=== PATIENT | female | born 1930 | race Caucasian/White ===

== ENCOUNTER 2018-07-19 13:58 | Inpatient (IN) | payer MEDICARE, BC ==
[2018-07-19] MEDS ORDERED: Sodium Chloride 0.9% 2.5 ML Syringe FLUSH PRN (14:01)
[2018-07-19] MEDS ORDERED: Sodium Chloride 0.9% 10 ML Syringe FLUSH PRN (14:01)
[2018-07-19] MEDS ORDERED: Diltiazem 25 MG/5 ML SDV IVPUSH ONE ×2 (14:14→15:25)
--- NOTE | 2018-07-19 14:16 | EDM.PDOC ---
ED HPI GENERAL MEDICAL PROBLEM - General Chief Complaint: Cardiovascular Problem Stated Complaint: SENT FROM THE CLINIC Time Seen by Provider: 07/19/18 14:00 Source of Information: Reports: Patient History Limitations: Reports: No Limitations - History of Present Illness INITIAL COMMENTS - FREE TEXT/NARRATIVE: HISTORY AND PHYSICAL: History of present illness: Patient is an 88-year-old female who [facility] with complaints of shortness of breath and dry cough since . She states she has notices lower extremity swelling to bilateral ankles; with a 10 lb weight gain in the past week. She went to the clinic for evaluation. The clinic noted that she was in atrial fibrillation and encouraged her to come to the emergency room. Patient has no previous history of atrial fibrillation. Patient denies any fever, chills, headache, change in vision, syncope or near syncope. Denies any chest pain or back pain. Denies any abdominal pain, nausea, vomiting, diarrhea, constipation or dysuria. Has not noted any blood in urine or stool. Patient has been eating and drinking appropriately. Review of systems: As per history of present illness and below otherwise all systems reviewed and negative. Past medical history: As per history of present illness and as reviewed below otherwise noncontributory. Surgical history: As per history of present illness and as reviewed below otherwise noncontributory. Social history: See social history for further information Family history: As per history of present illness and as reviewed below otherwise noncontributory. Physical exam: General: Well developed and well nourished 88-year-old female. Alert and oriented. Nontoxic appearing and in no acute distress. HEENT: Atraumatic, normocephalic, pupils equal and reactive bilaterally, negative for conjunctival pallor or scleral icterus, mucous membranes moist, TMs normal bilaterally, throat clear, neck supple, nontender, trachea midline. No drooling or trismus noted. No meningeal signs. No hot potato voice noted. Lungs: Clear to auscultation, breath sounds equal bilaterally, chest nontender. Heart: Irregular rate and rhythm, HR 140-160's. Abdomen: Soft, nondistended, nontender. Negative for masses or hepatosplenomegaly. Negative for costovertebral tenderness. Pelvis: Stable nontender. Genitourinary: Deferred. Rectal: Deferred. Skin: Intact, warm, dry. No lesions or rashes noted. Extremities: Atraumatic, moves all extremities per self without difficulty or deficits, +2 pitting edema bilaterally. She is negative for cords or calf pain. Neurovascular unremarkable. Neuro: Awake, alert, oriented. Cranial nerves II through XII unremarkable. Cerebellum unremarkable. Motor and sensory unremarkable throughout. Exam nonfocal. Notes: CHADS2-VASC Score: 4 (Female, age greater than 75, hx of HTN). Dr Gerard has been involved in this case. After the initial dose of the Cardizem, patient's rate went down to 90s to low 100s. Approximately 45 minutes to one hour after the initial dose her rate is now 1 teens. Second dose of Cardizem given. Dr Do was consulted on this patient; he is agreeable to keeping this patient for observation. Patient will be admitted for observation with telemetry. Patient is aware and agreeable. Diagnostics: CBC, CMP, UA, Troponin, EKG, BNP, CXR Therapeutics: Cardizem, IV fluids Impression: New-onset atrial fibrillation with RVR Plan: Observation admission with Telemetry Definitive disposition and diagnosis as appropriate pending reevaluation and review of above. - Related Data Allergies Allergy/AdvReac Type Severity Reaction Status Date / Time shellfish derived Allergy Intermediate Airway Verified 06/08/14 21:24 Tightness aspirin Allergy Cannot Verified 07/08/13 13:37 Remember diphenhydramine HCl Allergy Difficulty Verified 06/08/14 21:23 [From Benadryl] Breathing prednisone Allergy Cannot Verified 07/08/13 13:37 Remember Home Meds: Home Meds hydroCHLOROthiazide [Hydrochlorothiazide] 25 mg PO DAILY 06/08/14 [History] ED ROS GENERAL - Review of Systems Review Of Systems: ROS reveals no pertinent complaints other than HPI. ED EXAM, GENERAL - Physical Exam Exam: See Below (See dictation) Course - Vital Signs Last Recorded V/S: Last Vital Signs Temp 98.2 F 07/19/18 14:13 Pulse 121 H 07/19/18 15:35 Resp 18 07/19/18 15:35 BP 121/73 07/19/18 15:35 Pulse Ox 95 07/19/18 15:35 - Orders/Labs/Meds Orders: Active Orders 24 hr Category Date Time Status Admission Status [Patient Status] [ADT] Stat ADT 07/19/18 15:29 Active EKG Documentation Completion [RC] STAT Care 07/19/18 14:01 Active UA RFX MAYDA AND CULT IF INDIC [URIN] Stat Lab 07/19/18 14:01 Ordered Sodium Chloride 0.9% [Normal Saline] 1,000 ml Med 07/19/18 14:19 Active IV STAT Sodium Chloride 0.9% [Saline Flush] Med 07/19/18 14:01 Active 10 ml FLUSH ASDIRECTED PRN Sodium Chloride 0.9% [Saline Flush] Med 07/19/18 14:01 Active 2.5 ml FLUSH ASDIRECTED PRN Saline Lock Insert [OM.PC] Stat Oth 07/19/18 14:01 Ordered Medication Orders Sodium Chloride (Normal Saline) 1,000 mls @ 125 mls/hr IV STAT ONE Stop: 07/19/18 22:18 Last Admin: 07/19/18 14:31 Dose: 125 mls/hr Sodium Chloride (Saline Flush) 10 ml FLUSH ASDIRECTED PRN PRN Reason: Keep Vein Open Last Admin: 07/19/18 14:32 Dose: 10 ml Sodium Chloride (Saline Flush) 2.5 ml FLUSH ASDIRECTED PRN PRN Reason: Keep Vein Open Last Admin: 07/19/18 14:32 Dose: 2.5 ml Labs: Laboratory Tests 07/19/18 07/19/18 07/19/18 Range/Units 14:10 14:10 14:10 WBC 8.95 (4.0-11.0) K/uL RBC 3.96 L (4.30-5.90) M/uL Hgb 12.1 (12.0-16.0) g/dL Hct 37.9 (36.0-46.0) % MCV 95.7 (80.0-98.0) fL MCH 30.6 (27.0-32.0) pg MCHC 31.9 (31.0-37.0) g/dL RDW Std Deviation 48.0 (28.0-62.0) fl RDW Coeff of Jameson 14 (11.0-15.0) % Plt Count 214 (150-400) K/uL MPV 9.90 (7.40-12.00) fL Neut % (Auto) 70.1 (48.0-80.0) % Lymph % (Auto) 21.7 (16.0-40.0) % Cloud % (Auto) 7.4 (0.0-15.0) % Eos % (Auto) 0.6 (0.0-7.0) % Baso % (Auto) 0.2 (0.0-1.5) % Neut # (Auto) 6.3 H (1.4-5.7) K/uL Lymph # (Auto) 1.9 (0.6-2.4) K/uL Cloud # (Auto) 0.7 (0.0-0.8) K/uL Eos # (Auto) 0.1 (0.0-0.7) K/uL Baso # (Auto) 0.0 (0.0-0.1) K/uL Nucleated RBC % 0.0 /100WBC Nucleated RBCs # 0 K/uL INR Sodium 139 (136-145) mmol/L Potassium 5.1 (3.5-5.1) mmol/L Chloride 105 (98-107) mmol/L Carbon Dioxide 24.7 (21.0-32.0) mmol/L BUN 35 H (7.0-18.0) mg/dL Creatinine 1.4 H (0.6-1.0) mg/dL Est Cr Clr Drug Dosing TNP Estimated GFR (MDRD) 35.4 ml/min Glucose 153 H (74-106) mg/dL Calcium 9.2 (8.5-10.1) mg/dL Total Bilirubin 0.5 (0.2-1.0) mg/dL AST 49 H (15-37) IU/L ALT 129 H (14-63) IU/L Alkaline Phosphatase 87 (46-116) U/L Troponin I < 0.050 (0.000-0.056) ng/mL B-Natriuretic Peptide 463 H (<100) PG/ML Total Protein 7.5 (6.4-8.2) g/dL Albumin 3.8 (3.4-5.0) g/dL Globulin 3.7 (2.6-4.0) g/dL Albumin/Globulin Ratio 1.0 (0.9-1.6) // Range/Units 14:10 WBC (4.0-11.0) K/uL RBC (4.30-5.90) M/uL Hgb (12.0-16.0) g/dL Hct (36.0-46.0) % MCV (80.0-98.0) fL MCH (27.0-32.0) pg MCHC (31.0-37.0) g/dL RDW Std Deviation (28.0-62.0) fl RDW Coeff of Jameson (11.0-15.0) % Plt Count (150-400) K/uL MPV (7.40-12.00) fL Neut % (Auto) (48.0-80.0) % Lymph % (Auto) (16.0-40.0) % Cloud % (Auto) (0.0-15.0) % Eos % (Auto) (0.0-7.0) % Baso % (Auto) (0.0-1.5) % Neut # (Auto) (1.4-5.7) K/uL Lymph # (Auto) (0.6-2.4) K/uL Cloud # (Auto) (0.0-0.8) K/uL Eos # (Auto) (0.0-0.7) K/uL Baso # (Auto) (0.0-0.1) K/uL Nucleated RBC % /100WBC Nucleated RBCs # K/uL INR 1.04 Sodium (136-145) mmol/L Potassium (3.5-5.1) mmol/L Chloride (98-107) mmol/L Carbon Dioxide (21.0-32.0) mmol/L BUN (7.0-18.0) mg/dL Creatinine (0.6-1.0) mg/dL Est Cr Clr Drug Dosing Estimated GFR (MDRD) ml/min Glucose (74-106) mg/dL Calcium (8.5-10.1) mg/dL Total Bilirubin (0.2-1.0) mg/dL AST (15-37) IU/L ALT (14-63) IU/L Alkaline Phosphatase (46-116) U/L Troponin I (0.000-0.056) ng/mL B-Natriuretic Peptide (<100) PG/ML Total Protein (6.4-8.2) g/dL Albumin (3.4-5.0) g/dL Globulin (2.6-4.0) g/dL Albumin/Globulin Ratio (0.9-1.6) Meds: Medications Generic Name Dose Route Start Last Admin Trade Name Freq PRN Reason Stop Dose Admin Sodium Chloride 1,000 mls @ 125 mls/hr 07/19/18 14:19 07/19/18 14:31 Normal Saline IV 07/19/18 22:18 125 mls/hr STAT ONE Administration Sodium Chloride 10 ml 07/19/18 14:01 07/19/18 14:32 Saline Flush FLUSH 10 ml ASDIRECTED PRN Administration Keep Vein Open Sodium Chloride 2.5 ml 07/19/18 14:01 07/19/18 14:32 Saline Flush FLUSH 2.5 ml ASDIRECTED PRN Administration Keep Vein Open Discontinued Medications Generic Name Dose Route Start Last Admin Trade Name Freq PRN Reason Stop Dose Admin Diltiazem HCl 20 mg 07/19/18 14:14 07/19/18 14:21 Diltiazem IVPUSH 07/19/18 14:15 20 mg ONETIME ONE Administration Diltiazem HCl 20 mg 07/19/18 15:25 Diltiazem IVPUSH 07/19/18 15:26 ONETIME ONE Departure - Departure Time of Disposition: 15:34 Disposition: Refer to Observation Clinical Impression: Atrial fibrillation with RVR Referrals: PCP,Unknown [Primary Care Provider] - Forms: ED Department Discharge - My Orders Last 24 Hours: My Active Orders 07/19/18 14:01 EKG Documentation Completion [RC] STAT UA RFX MAYDA AND CULT IF INDIC [URIN] Stat Sodium Chloride 0.9% [Saline Flush] 10 ml FLUSH ASDIRECTED PRN Sodium Chloride 0.9% [Saline Flush] 2.5 ml FLUSH ASDIRECTED PRN Saline Lock Insert [OM.PC] Stat 07/19/18 14:19 Sodium Chloride 0.9% [Normal Saline] 1,000 ml IV STAT 07/19/18 15:29 Admission Status [Patient Status] [ADT] Stat - Assessment/Plan Last 24 Hours: My Active Orders 07/19/18 14:01 EKG Documentation Completion [RC] STAT UA RFX MAYDA AND CULT IF INDIC [URIN] Stat Sodium Chloride 0.9% [Saline Flush] 10 ml FLUSH ASDIRECTED PRN Sodium Chloride 0.9% [Saline Flush] 2.5 ml FLUSH ASDIRECTED PRN Saline Lock Insert [OM.PC] Stat 07/19/18 14:19 Sodium Chloride 0.9% [Normal Saline] 1,000 ml IV STAT 07/19/18 15:29 Admission Status [Patient Status] [ADT] Stat
[2018-07-19] MEDS ORDERED: Sodium Chloride 0.9% 1,000 ML IV ONE (14:19)
[2018-07-19 14:52] LABS: CHLORIDE,CL 105 mmol/L (98-107); SODIUM,NA 139 mmol/L (136-145)
--- NOTE | 2018-07-19 15:13 | CR ---
EXAMINATION: Two-view chest (PA and Lateral views). HISTORY: Shortness of breath. FINDINGS: The trachea is midline. The heart is borderline in size for technique. The cardiomediastinal silhouette is within normal limits. No pulmonary infiltrates, effusions or pneumothorax. Mild vascular calcifications. Mild hyperinflation and chronic interstitial prominence. Osseous structures appear osteopenic. IMPRESSION: Mild cardiomegaly and hyperinflation.
[2018-07-19] MEDS ORDERED: Furosemide 40 MG/4 ML VIAL IVPUSH ONE (18:24)
[2018-07-19] MEDS: Metoprolol Tartrate 25 MG Tab PO SCH (18:36)
--- NOTE | 2018-07-19 19:00 | PCM.HP ---
H&P History of Present Illness - General Date of Service: 07/19/18 Admit Problem/Dx: Admission Diagnosis/Problem Admission Diagnosis/Problem Atrial fibrillation with rapid ventricular response - History of Present Illness Initial Comments - Free Text/Narative: 88 yo female who presented with one day history of shortness of breath. Patient reports and increase in 10 lbs in past week. She also noticed increase swelling of her legs. She does not sleep on her back due to shortness of breath. In the ED she was noted to have atrial fibrillation with rate of 160. She was given diltiazem which has slowed down her rate. - Related Data Allergies/Adverse Reactions: Allergies Allergy/AdvReac Type Severity Reaction Status Date / Time shellfish derived Allergy Intermediate Airway Verified 06/08/14 21:24 Tightness aspirin Allergy Cannot Verified 07/08/13 13:37 Remember diphenhydramine HCl Allergy Difficulty Verified 06/08/14 21:23 [From Benadryl] Breathing prednisone Allergy Cannot Verified 07/08/13 13:37 Remember Home Medications: Home Meds hydroCHLOROthiazide [Hydrochlorothiazide] 25 mg PO DAILY 06/08/14 [History] Past Medical History HEENT History: Reports: Hard of Hearing Other HEENT History: Cochlear implant Right Cardiovascular History: Reports: Hypertension Respiratory History: Reports: None Gastrointestinal History: Reports: None TOOL MAKER History: Reports: None Neurological History: Reports: None Psychiatric History: Reports: None Endocrine/Metabolic History: Reports: None Hematologic History: Reports: None Immunologic History: Reports: None Oncologic (Cancer) History: Reports: None Dermatologic History: Reports: None - Infectious Disease History Infectious Disease History: Reports: Measles, Mumps - Past Surgical History Head Surgeries/Procedures: Reports: None HEENT Surgical History: Reports: Adenoidectomy Musculoskeletal Surgical History: Reports: Shoulder Surgery Social & Family History - Family History Family Medical History: Noncontributory - Tobacco Use Smoking Status *Q: Never Smoker Second Hand Smoke Exposure: No - Caffeine Use Caffeine Use: Reports: Coffee, Soda Caffeine Use Comment: drinks 3-4 cups of coffee per day as stated and drinks soda occassionally - Alcohol Use Days Per Week of Alcohol Use: 2 Number of Drinks Per Day: 1 Total Drinks Per Week: 2 Date of Last Drink: 07/14/18 Time of Last Drink: 08:00 - Recreational Drug Use Recreational Drug Use: No H&P Review of Systems - Review of Systems: Review Of Systems: ROS reveals no pertinent complaints other than HPI. Exam - Exam Exam: See Below - Vital Signs Vital Signs: Last Vital Signs Temp 36.2 C 07/19/18 17:30 Pulse 130 H 07/19/18 18:36 Resp 19 07/19/18 17:30 BP 166/103 H 07/19/18 18:36 Pulse Ox 97 07/19/18 17:30 Weight: 95.753 kg - Exam General: Alert, Oriented HEENT: Conjunctiva Clear Neck: Supple, Trachea Midline Lungs: Clear to Auscultation, Normal Respiratory Effort Cardiovascular: Irregular Rhythm, Tachycardia GI/Abdominal Exam: Normal Bowel Sounds, Soft, Non-Tender Extremities: Normal Range of Motion, Non-Tender, Pedal Edema Skin: Warm, Dry, Intact - Patient Data Lab Results Last 24 hrs: Laboratory Results - last 24 hr 07/19/18 07/19/18 07/19/18 Range/Units 14:10 14:10 14:10 WBC 8.95 (4.0-11.0) K/uL RBC 3.96 L (4.30-5.90) M/uL Hgb 12.1 (12.0-16.0) g/dL Hct 37.9 (36.0-46.0) % MCV 95.7 (80.0-98.0) fL MCH 30.6 (27.0-32.0) pg MCHC 31.9 (31.0-37.0) g/dL RDW Std Deviation 48.0 (28.0-62.0) fl RDW Coeff of Jameson 14 (11.0-15.0) % Plt Count 214 (150-400) K/uL MPV 9.90 (7.40-12.00) fL Neut % (Auto) 70.1 (48.0-80.0) % Lymph % (Auto) 21.7 (16.0-40.0) % [place] % (Auto) 7.4 (0.0-15.0) % Eos % (Auto) 0.6 (0.0-7.0) % Baso % (Auto) 0.2 (0.0-1.5) % Neut # (Auto) 6.3 H (1.4-5.7) K/uL Lymph # (Auto) 1.9 (0.6-2.4) K/uL [place] # (Auto) 0.7 (0.0-0.8) K/uL Eos # (Auto) 0.1 (0.0-0.7) K/uL Baso # (Auto) 0.0 (0.0-0.1) K/uL Nucleated RBC % 0.0 /100WBC Nucleated RBCs # 0 K/uL INR Sodium 139 (136-145) mmol/L Potassium 5.1 (3.5-5.1) mmol/L Chloride 105 (98-107) mmol/L Carbon Dioxide 24.7 (21.0-32.0) mmol/L BUN 35 H (7.0-18.0) mg/dL Creatinine 1.4 H (0.6-1.0) mg/dL Est Cr Clr Drug Dosing TNP Estimated GFR (MDRD) 35.4 ml/min Glucose 153 H (74-106) mg/dL Calcium 9.2 (8.5-10.1) mg/dL Magnesium (1.8-2.4) mg/dL Total Bilirubin 0.5 (0.2-1.0) mg/dL AST 49 H (15-37) IU/L ALT 129 H (14-63) IU/L Alkaline Phosphatase 87 (46-116) U/L Troponin I < 0.050 (0.000-0.056) ng/mL B-Natriuretic Peptide 463 H (<100) PG/ML Total Protein 7.5 (6.4-8.2) g/dL Albumin 3.8 (3.4-5.0) g/dL Globulin 3.7 (2.6-4.0) g/dL Albumin/Globulin Ratio 1.0 (0.9-1.6) 07/19/18 07/19/18 Range/Units 14:10 14:10 WBC (4.0-11.0) K/uL RBC (4.30-5.90) M/uL Hgb (12.0-16.0) g/dL Hct (36.0-46.0) % MCV (80.0-98.0) fL MCH (27.0-32.0) pg MCHC (31.0-37.0) g/dL RDW Std Deviation (28.0-62.0) fl RDW Coeff of Jameson (11.0-15.0) % Plt Count (150-400) K/uL MPV (7.40-12.00) fL Neut % (Auto) (48.0-80.0) % Lymph % (Auto) (16.0-40.0) % [place] % (Auto) (0.0-15.0) % Eos % (Auto) (0.0-7.0) % Baso % (Auto) (0.0-1.5) % Neut # (Auto) (1.4-5.7) K/uL Lymph # (Auto) (0.6-2.4) K/uL [place] # (Auto) (0.0-0.8) K/uL Eos # (Auto) (0.0-0.7) K/uL Baso # (Auto) (0.0-0.1) K/uL Nucleated RBC % /100WBC Nucleated RBCs # K/uL INR 1.04 Sodium (136-145) mmol/L Potassium (3.5-5.1) mmol/L Chloride (98-107) mmol/L Carbon Dioxide (21.0-32.0) mmol/L BUN (7.0-18.0) mg/dL Creatinine (0.6-1.0) mg/dL Est Cr Clr Drug Dosing Estimated GFR (MDRD) ml/min Glucose (74-106) mg/dL Calcium (8.5-10.1) mg/dL Magnesium 2.2 (1.8-2.4) mg/dL Total Bilirubin (0.2-1.0) mg/dL AST (15-37) IU/L ALT (14-63) IU/L Alkaline Phosphatase (46-116) U/L Troponin I (0.000-0.056) ng/mL B-Natriuretic Peptide (<100) PG/ML Total Protein (6.4-8.2) g/dL Albumin (3.4-5.0) g/dL Globulin (2.6-4.0) g/dL Albumin/Globulin Ratio (0.9-1.6) Result Diagrams: 07/19/18 14:10 07/19/18 14:10 Problem List Initiated/Reviewed/Updated: Yes Orders Last 24hrs: Active Orders 24 hr Category Date Time Status Patient Status [ADT] Routine ADT 07/19/18 18:54 Ordered Antiembolic Devices [RC] PER UNIT ROUTINE Care 07/19/18 18:56 Ordered Oxygen Therapy [RC] PRN Care 07/19/18 18:54 Ordered Up ad Maryuri [RC] ASDIRECTED Care 07/19/18 18:54 Ordered VTE/DVT Education [RC] PER UNIT ROUTINE Care 07/19/18 18:54 Ordered Vital Signs [RC] Q4H Care 07/19/18 18:54 Ordered Regular Diet [DIET] Diet 07/19/18 Dinner Active BASIC METABOLIC PANEL,BMP [CHEM] Timed Lab 07/19/18 18:54 Ordered CBC WITH AUTO DIFF [HEME] AM Lab 07/20/18 05:11 Ordered UA RFX MAYDA AND CULT IF INDIC [URIN] Stat Lab 07/19/18 14:01 Ordered Apixaban [Eliquis] Med 07/19/18 21:00 Active 2.5 mg PO BID Diltiazem Med 07/19/18 18:24 Active 20 mg IVPUSH Q3H PRN Metoprolol Tartrate [Lopressor] Med 07/19/18 18:30 Active 25 mg PO Q12H Sodium Chloride 0.9% [Saline Flush] Med 07/19/18 14:01 Active 10 ml FLUSH ASDIRECTED PRN Sodium Chloride 0.9% [Saline Flush] Med 07/19/18 14:01 Active 2.5 ml FLUSH ASDIRECTED PRN Saline Lock Insert [OM.PC] Stat Oth 07/19/18 14:01 Ordered Sequential Compression Device [OM.PC] Per Unit Routine Oth 07/19/18 18:55 Ordered Resuscitation Status Routine Resus Stat 07/19/18 18:54 Ordered Medication Orders Apixaban (Eliquis) 2.5 mg PO BID DIEGO Diltiazem HCl (Diltiazem) 20 mg IVPUSH Q3H PRN PRN Reason: HR over 100 Metoprolol Tartrate (Lopressor) 25 mg PO Q12H DIEGO Last Admin: 07/19/18 18:36 Dose: 25 mg Sodium Chloride (Saline Flush) 10 ml FLUSH ASDIRECTED PRN PRN Reason: Keep Vein Open Last Admin: 07/19/18 14:32 Dose: 10 ml Sodium Chloride (Saline Flush) 2.5 ml FLUSH ASDIRECTED PRN PRN Reason: Keep Vein Open Last Admin: 07/19/18 14:32 Dose: 2.5 ml Assessment/Plan Comment:: 88 yo female admitted with atrial fibrillation with RVR and suspect new onset CHF exacerbation. We will treat with IV lasix, metoprolol for rate control. Patient wants to start Eliquis for stroke prevention. Echocardiogram has been ordered.
[2018-07-19] MEDS: Apixaban 2.5 MG Tab PO SCH (21:10)
[2018-07-19] MEDS: Diltiazem 25 MG/5 ML SDV IVPUSH PRN (23:06)
[2018-07-20] MEDS: Albuterol 8 GM Inhaler INH PRN (02:54)
[2018-07-20] MEDS: Diltiazem 25 MG/5 ML SDV IVPUSH PRN ×3 (02:55→15:55)
[2018-07-20] MEDS: Acetaminophen 325 MG Tab PO PRN ×2 (03:53→21:42)
[2018-07-20] MEDS: Metoprolol Tartrate 25 MG Tab PO SCH ×2 (06:57→17:49)
[2018-07-20] MEDS: Apixaban 2.5 MG Tab PO SCH ×2 (09:09→20:06)
--- NOTE | 2018-07-20 13:40 | PCM.PN ---
- General Info Date of Service: 07/20/18 - Review of Systems Systems Review Comment:: still reports shortness of breath - Patient Data Vitals - Most Recent: Last Vital Signs Temp 36.0 C 07/20/18 12:00 Pulse 109 H 07/20/18 12:00 Resp 20 07/20/18 12:00 BP 107/60 07/20/18 12:00 Pulse Ox 98 07/20/18 12:00 Weight - Most Recent: 95.481 kg I&O - Last 24 Hours: Intake & Output 07/19/18 07/20/18 07/20/18 22:59 06:59 14:59 Intake Total 550 Output Total 1100 Balance -550 Lab Results Last 24 Hours: Laboratory Results - last 24 hr 07/19/18 07/19/18 07/19/18 Range/Units 14:10 14:10 14:10 WBC 8.95 (4.0-11.0) K/uL RBC 3.96 L (4.30-5.90) M/uL Hgb 12.1 (12.0-16.0) g/dL Hct 37.9 (36.0-46.0) % MCV 95.7 (80.0-98.0) fL MCH 30.6 (27.0-32.0) pg MCHC 31.9 (31.0-37.0) g/dL RDW Std Deviation 48.0 (28.0-62.0) fl RDW Coeff of [place] 14 (11.0-15.0) % Plt Count 214 (150-400) K/uL MPV 9.90 (7.40-12.00) fL Neut % (Auto) 70.1 (48.0-80.0) % Lymph % (Auto) 21.7 (16.0-40.0) % [place] % (Auto) 7.4 (0.0-15.0) % Eos % (Auto) 0.6 (0.0-7.0) % Baso % (Auto) 0.2 (0.0-1.5) % Neut # (Auto) 6.3 H (1.4-5.7) K/uL Lymph # (Auto) 1.9 (0.6-2.4) K/uL [place] # (Auto) 0.7 (0.0-0.8) K/uL Eos # (Auto) 0.1 (0.0-0.7) K/uL Baso # (Auto) 0.0 (0.0-0.1) K/uL Nucleated RBC % 0.0 /100WBC Nucleated RBCs # 0 K/uL INR Sodium 139 (136-145) mmol/L Potassium 5.1 (3.5-5.1) mmol/L Chloride 105 (98-107) mmol/L Carbon Dioxide 24.7 (21.0-32.0) mmol/L BUN 35 H (7.0-18.0) mg/dL Creatinine 1.4 H (0.6-1.0) mg/dL Est Cr Clr Drug Dosing TNP Estimated GFR (MDRD) 35.4 ml/min Glucose 153 H (74-106) mg/dL Calcium 9.2 (8.5-10.1) mg/dL Magnesium (1.8-2.4) mg/dL Total Bilirubin 0.5 (0.2-1.0) mg/dL AST 49 H (15-37) IU/L ALT 129 H (14-63) IU/L Alkaline Phosphatase 87 (46-116) U/L Troponin I < 0.050 (0.000-0.056) ng/mL B-Natriuretic Peptide 463 H (<100) PG/ML Total Protein 7.5 (6.4-8.2) g/dL Albumin 3.8 (3.4-5.0) g/dL Globulin 3.7 (2.6-4.0) g/dL Albumin/Globulin Ratio 1.0 (0.9-1.6) Urine Color Urine Appearance Urine pH (5.0-8.0) Ur Specific [place] (1.001-1.035) Urine Protein (NEGATIVE) mg/dL Urine Glucose (UA) (NEGATIVE) mg/dL Urine Ketones (NEGATIVE) mg/dL Urine Occult Blood (NEGATIVE) Urine Nitrite (NEGATIVE) Urine Bilirubin (NEGATIVE) Urine Urobilinogen (<2.0) EU/dL Ur Leukocyte Esterase (NEGATIVE) Urine RBC (0-2/HPF) Urine WBC (0-5/HPF) Ur Epithelial Cells (NONE-FEW) Urine Bacteria (NEGATIVE) 07/19/18 07/19/18 07/19/18 Range/Units 14:10 14:10 19:08 WBC (4.0-11.0) K/uL RBC (4.30-5.90) M/uL Hgb (12.0-16.0) g/dL Hct (36.0-46.0) % MCV (80.0-98.0) fL MCH (27.0-32.0) pg MCHC (31.0-37.0) g/dL RDW Std Deviation (28.0-62.0) fl RDW Coeff of Jameson (11.0-15.0) % Plt Count (150-400) K/uL MPV (7.40-12.00) fL Neut % (Auto) (48.0-80.0) % Lymph % (Auto) (16.0-40.0) % [place] % (Auto) (0.0-15.0) % Eos % (Auto) (0.0-7.0) % Baso % (Auto) (0.0-1.5) % Neut # (Auto) (1.4-5.7) K/uL Lymph # (Auto) (0.6-2.4) K/uL [place] # (Auto) (0.0-0.8) K/uL Eos # (Auto) (0.0-0.7) K/uL Baso # (Auto) (0.0-0.1) K/uL Nucleated RBC % /100WBC Nucleated RBCs # K/uL INR 1.04 Sodium 140 (136-145) mmol/L Potassium 5.3 H (3.5-5.1) mmol/L Chloride 105 (98-107) mmol/L Carbon Dioxide 25.3 (21.0-32.0) mmol/L BUN 36 H (7.0-18.0) mg/dL Creatinine 1.3 H (0.6-1.0) mg/dL Est Cr Clr Drug Dosing 25.33 Estimated GFR (MDRD) 38.6 ml/min Glucose 134 H (74-106) mg/dL Calcium 9.1 (8.5-10.1) mg/dL Magnesium 2.2 (1.8-2.4) mg/dL Total Bilirubin (0.2-1.0) mg/dL AST (15-37) IU/L ALT (14-63) IU/L Alkaline Phosphatase (46-116) U/L Troponin I (0.000-0.056) ng/mL B-Natriuretic Peptide (<100) PG/ML Total Protein (6.4-8.2) g/dL Albumin (3.4-5.0) g/dL Globulin (2.6-4.0) g/dL Albumin/Globulin Ratio (0.9-1.6) Urine Color Urine Appearance Urine pH (5.0-8.0) Ur Specific [place] (1.001-1.035) Urine Protein (NEGATIVE) mg/dL Urine Glucose (UA) (NEGATIVE) mg/dL Urine Ketones (NEGATIVE) mg/dL Urine Occult Blood (NEGATIVE) Urine Nitrite (NEGATIVE) Urine Bilirubin (NEGATIVE) Urine Urobilinogen (<2.0) EU/dL Ur Leukocyte Esterase (NEGATIVE) Urine RBC (0-2/HPF) Urine WBC (0-5/HPF) Ur Epithelial Cells (NONE-FEW) Urine Bacteria (NEGATIVE) 07/19/18 07/20/18 07/20/18 Range/Units 19:35 07:01 11:32 WBC 8.96 (4.0-11.0) K/uL RBC 3.63 L (4.30-5.90) M/uL Hgb 11.0 L (12.0-16.0) g/dL Hct 34.3 L (36.0-46.0) % MCV 94.5 (80.0-98.0) fL MCH 30.3 (27.0-32.0) pg MCHC 32.1 (31.0-37.0) g/dL RDW Std Deviation 47.0 (28.0-62.0) fl RDW Coeff of [place] 14 (11.0-15.0) % Plt Count 150 (150-400) K/uL MPV 10.00 (7.40-12.00) fL Neut % (Auto) 55.0 (48.0-80.0) % Lymph % (Auto) 34.5 (16.0-40.0) % [place] % (Auto) 8.4 (0.0-15.0) % Eos % (Auto) 1.9 (0.0-7.0) % Baso % (Auto) 0.2 (0.0-1.5) % Neut # (Auto) 4.9 (1.4-5.7) K/uL Lymph # (Auto) 3.1 H (0.6-2.4) K/uL [place] # (Auto) 0.8 (0.0-0.8) K/uL Eos # (Auto) 0.2 (0.0-0.7) K/uL Baso # (Auto) 0.0 (0.0-0.1) K/uL Nucleated RBC % 0.0 /100WBC Nucleated RBCs # 0 K/uL INR Sodium 139 (136-145) mmol/L Potassium 4.7 (3.5-5.1) mmol/L Chloride 104 (98-107) mmol/L Carbon Dioxide 27.2 (21.0-32.0) mmol/L BUN 40 H (7.0-18.0) mg/dL Creatinine 1.4 H (0.6-1.0) mg/dL Est Cr Clr Drug Dosing 23.69 Estimated GFR (MDRD) 35.4 ml/min Glucose 135 H (74-106) mg/dL Calcium 9.2 (8.5-10.1) mg/dL Magnesium (1.8-2.4) mg/dL Total Bilirubin (0.2-1.0) mg/dL AST (15-37) IU/L ALT (14-63) IU/L Alkaline Phosphatase (46-116) U/L Troponin I (0.000-0.056) ng/mL B-Natriuretic Peptide (<100) PG/ML Total Protein (6.4-8.2) g/dL Albumin (3.4-5.0) g/dL Globulin (2.6-4.0) g/dL Albumin/Globulin Ratio (0.9-1.6) Urine Color DARK YELLOW Urine Appearance SLT CLOUDY Urine pH 5.0 (5.0-8.0) Ur Specific [place] 1.020 (1.001-1.035) Urine Protein NEGATIVE (NEGATIVE) mg/dL Urine Glucose (UA) NEGATIVE (NEGATIVE) mg/dL Urine Ketones NEGATIVE (NEGATIVE) mg/dL Urine Occult Blood NEGATIVE (NEGATIVE) Urine Nitrite POSITIVE H (NEGATIVE) Urine Bilirubin NEGATIVE (NEGATIVE) Urine Urobilinogen 0.2 (<2.0) EU/dL Ur Leukocyte Esterase SMALL H (NEGATIVE) Urine RBC 0-3 (0-2/HPF) Urine WBC 10-15 (0-5/HPF) Ur Epithelial Cells FEW (NONE-FEW) Urine Bacteria 3+ H (NEGATIVE) Med Orders - Current: Current Medications Acetaminophen (Tylenol) 650 mg PO Q6H PRN PRN Reason: Pain Last Admin: 07/20/18 03:53 Dose: 650 mg Albuterol (Ventolin Hfa) 0 gm INH Q4H PRN PRN Reason: Shortness of Breath Last Admin: 07/20/18 02:54 Dose: 2 inhalation Apixaban (Eliquis) 2.5 mg PO BID [place] Last Admin: 07/20/18 09:09 Dose: 2.5 mg Diltiazem HCl (Diltiazem) 20 mg IVPUSH Q3H PRN PRN Reason: HR over 100 Last Admin: 07/20/18 12:30 Dose: 20 mg Furosemide (Lasix) 40 mg IVPUSH NOW ONE Stop: 07/20/18 13:39 Metoprolol Tartrate (Lopressor) 25 mg PO Q12H [place] Last Admin: 07/20/18 06:57 Dose: 25 mg Sodium Chloride (Saline Flush) 10 ml FLUSH ASDIRECTED PRN PRN Reason: Keep Vein Open Last Admin: 07/19/18 14:32 Dose: 10 ml Sodium Chloride (Saline Flush) 2.5 ml FLUSH ASDIRECTED PRN PRN Reason: Keep Vein Open Last Admin: 07/19/18 14:32 Dose: 2.5 ml Discontinued Medications Diltiazem HCl (Diltiazem) 20 mg IVPUSH ONETIME ONE Stop: 07/19/18 14:15 Last Admin: 07/19/18 14:21 Dose: 20 mg Diltiazem HCl (Diltiazem) 20 mg IVPUSH ONETIME ONE Stop: 07/19/18 15:26 Last Admin: 07/19/18 15:40 Dose: 20 mg Furosemide (Lasix) 40 mg IVPUSH NOW ONE Stop: 07/19/18 18:25 Last Admin: 07/19/18 18:36 Dose: 40 mg Sodium Chloride (Normal Saline) 1,000 mls @ 125 mls/hr IV STAT ONE Stop: 07/19/18 22:18 Last Admin: 07/19/18 14:31 Dose: 125 mls/hr - Exam General: Alert, Oriented Neck: Supple Lungs: Clear to Auscultation, Normal Respiratory Effort Cardiovascular: Irregular Rhythm Extremities: Pedal Edema Skin: Warm, Dry, Intact - Problem List Review Problem List Initiated/Reviewed/Updated: Yes - My Orders Last 24 Hours: My Active Orders 07/19/18 18:24 Diltiazem 20 mg IVPUSH Q3H PRN 07/19/18 18:30 Metoprolol Tartrate [Lopressor] 25 mg PO Q12H 07/19/18 18:54 Patient Status [ADT] Routine Oxygen Therapy [RC] PRN Up ad Maryuri [RC] ASDIRECTED VTE/DVT Education [RC] PER UNIT ROUTINE Vital Signs [RC] Q4H Resuscitation Status Routine 07/19/18 18:55 Sequential Compression Device [OM.PC] Per Unit Routine 07/19/18 18:56 Antiembolic Devices [RC] PER UNIT ROUTINE Echo Comp wo Cont [US] Routine 07/19/18 21:00 Apixaban [Eliquis] 2.5 mg PO BID 07/19/18 23:50 Telemetry Monitoring [Cardiac Monitoring] [RC] Q8H 07/19/18 23:51 Albuterol [Ventolin HFA] 0 gm INH Q4H PRN 07/19/18 23:53 RT Post Treatment Assessment [RC] Click to Edit RT Pre-Treatment Assessment [RC] Click to Edit 07/19/18 Dinner Regular Diet [DIET] 07/20/18 03:34 Acetaminophen [Tylenol] 650 mg PO Q6H PRN 07/20/18 13:38 Furosemide [Lasix] 40 mg IVPUSH NOW ONE 07/21/18 05:11 BASIC METABOLIC PANEL,BMP [CHEM] AM 07/22/18 05:11 BASIC METABOLIC PANEL,BMP [CHEM] AM - Plan Plan:: 88 yo female admitted with atrial fibrillation with RVR and suspect new onset CHF exacerbation. We will continue IV lasix, metoprolol 25 BID for rate control. Started Eliquis for stroke prevention. Echocardiogram has been ordered.
[2018-07-20] MEDS ORDERED: Furosemide 40 MG/4 ML VIAL IVPUSH ONE (13:43)
[2018-07-21] MEDS: Metoprolol Tartrate 25 MG Tab PO SCH ×3 (06:19→23:20)
[2018-07-21] MEDS: Apixaban 2.5 MG Tab PO SCH ×2 (08:29→20:38)
[2018-07-21] MEDS ORDERED: Furosemide 40 MG/4 ML VIAL IVPUSH ONE (11:00)
--- NOTE | 2018-07-21 11:10 | PCM.PN ---
- General Info Date of Service: 07/21/18 - Review of Systems Systems Review Comment:: shortness of breath improving - Patient Data Vitals - Most Recent: Last Vital Signs Temp 37.3 C 07/21/18 08:00 Pulse 82 07/21/18 08:00 Resp 17 07/21/18 08:00 BP 111/78 07/21/18 08:00 Pulse Ox 96 07/21/18 08:00 Weight - Most Recent: 92.788 kg I&O - Last 24 Hours: Intake & Output 07/20/18 07/21/18 07/21/18 22:59 06:59 14:59 Intake Total 1000 800 Output Total 1450 1400 Balance -450 -600 Lab Results Last 24 Hours: Laboratory Results - last 24 hr 07/20/18 07/21/18 Range/Units 11:32 05:58 Sodium 139 141 (136-145) mmol/L Potassium 4.7 3.9 (3.5-5.1) mmol/L Chloride 104 105 (98-107) mmol/L Carbon Dioxide 27.2 27.5 (21.0-32.0) mmol/L BUN 40 H 41 H (7.0-18.0) mg/dL Creatinine 1.4 H 1.6 H (0.6-1.0) mg/dL Est Cr Clr Drug Dosing 23.69 20.73 mL/min Estimated GFR (MDRD) 35.4 30.3 ml/min Glucose 135 H 115 H (74-106) mg/dL Calcium 9.2 8.8 (8.5-10.1) mg/dL Kyle Results Last 24 Hours: Microbiology 07/19/18 19:35 Urine Culture - Final Urine, Clean Catch Escherichia Coli Positive For Group B Strep Normal Urogenital Harper Med Orders - Current: Current Medications Acetaminophen (Tylenol) 650 mg PO Q6H PRN PRN Reason: Pain Last Admin: 07/20/18 21:42 Dose: 650 mg Albuterol (Ventolin Hfa) 0 gm INH Q4H PRN PRN Reason: Shortness of Breath Last Admin: 07/20/18 02:54 Dose: 2 inhalation Apixaban (Eliquis) 2.5 mg PO BID [place] Last Admin: 07/21/18 08:29 Dose: 2.5 mg Cephalexin (Keflex) 250 mg PO Q12H [facility] Diltiazem HCl (Diltiazem) 20 mg IVPUSH Q3H PRN PRN Reason: HR over 100 Last Admin: 07/20/18 15:55 Dose: 20 mg Metoprolol Tartrate (Lopressor) 25 mg PO Q12H [facility] Last Admin: 07/21/18 06:19 Dose: Not Given Sodium Chloride (Saline Flush) 10 ml FLUSH ASDIRECTED PRN PRN Reason: Keep Vein Open Last Admin: 07/19/18 14:32 Dose: 10 ml Sodium Chloride (Saline Flush) 2.5 ml FLUSH ASDIRECTED PRN PRN Reason: Keep Vein Open Last Admin: 07/19/18 14:32 Dose: 2.5 ml Discontinued Medications Diltiazem HCl (Diltiazem) 20 mg IVPUSH ONETIME ONE Stop: 07/19/18 14:15 Last Admin: 07/19/18 14:21 Dose: 20 mg Diltiazem HCl (Diltiazem) 20 mg IVPUSH ONETIME ONE Stop: 07/19/18 15:26 Last Admin: 07/19/18 15:40 Dose: 20 mg Furosemide (Lasix) 40 mg IVPUSH NOW ONE Stop: 07/19/18 18:25 Last Admin: 07/19/18 18:36 Dose: 40 mg Furosemide (Lasix) 40 mg IVPUSH NOW ONE Stop: 07/20/18 13:44 Last Admin: 07/20/18 14:03 Dose: 40 mg Furosemide (Lasix) 40 mg IVPUSH NOW ONE Stop: 07/21/18 11:01 Sodium Chloride (Normal Saline) 1,000 mls @ 125 mls/hr IV STAT ONE Stop: 07/19/18 22:18 Last Admin: 07/19/18 14:31 Dose: 125 mls/hr - Exam General: Alert, Oriented HEENT: Mucous Membr. Moist/[place] Neck: Supple Lungs: Clear to Auscultation, Normal Respiratory Effort Cardiovascular: Regular Rate, Regular Rhythm GI/Abdominal Exam: Soft, Non-Tender Extremities: Pedal Edema Skin: Warm, Dry, Intact - Problem List Review Problem List Initiated/Reviewed/Updated: Yes - My Orders Last 24 Hours: My Active Orders 07/21/18 11:00 cephALEXin [Keflex] 250 mg PO Q12H 07/21/18 11:08 Metoprolol Tartrate [Lopressor] 50 mg PO Q12H 07/21/18 Lunch Fluid Restriction [DIET] 07/22/18 05:11 BASIC METABOLIC PANEL,BMP [CHEM] AM CBC WITH AUTO DIFF [HEME] AM - Plan Plan:: 88 yo female admitted with atrial fibrillation with RVR and suspect new onset CHF exacerbation. CHF: continue lasix 40mg IV daily, echocardiogram ordered A.fib: increase metoprolol o 50mg BID, continue eliquisWe will continue IV lasix , metoprolol 25 BID for rate control. Ecoli UTI: treating with Keflex
[2018-07-21] MEDS: Cephalexin 250 MG Cap PO SCH ×2 (11:35→23:21)
[2018-07-21] MEDS: Diltiazem 25 MG/5 ML SDV IVPUSH PRN ×2 (14:55→23:21)
[2018-07-21] MEDS: Acetaminophen 325 MG Tab PO PRN (20:38)
[2018-07-22] MEDS: Acetaminophen 325 MG Tab PO PRN ×3 (04:17→22:03)
[2018-07-22] MEDS: Apixaban 2.5 MG Tab PO SCH ×2 (09:25→21:06)
[2018-07-22] MEDS: Diltiazem 25 MG/5 ML SDV IVPUSH PRN (09:25)
--- NOTE | 2018-07-22 10:33 | PCM.PN ---
- General Info Date of Service: 07/22/18 - Review of Systems Systems Review Comment:: shortness of breath resolved - Patient Data Vitals - Most Recent: Last Vital Signs Temp 35.9 C 07/22/18 08:00 Pulse 144 H 07/22/18 08:00 Resp 20 07/22/18 08:00 BP 89/72 L 07/22/18 08:00 Pulse Ox 92 L 07/22/18 08:00 Weight - Most Recent: 93.5 kg I&O - Last 24 Hours: Intake & Output 07/21/18 07/22/18 07/22/18 22:59 06:59 14:59 Intake Total 550 750 Output Total 850 1000 Balance -300 -250 Lab Results Last 24 Hours: Laboratory Results - last 24 hr 07/22/18 07/22/18 Range/Units 05:50 05:50 WBC 7.22 (4.0-11.0) K/uL RBC 3.70 L (4.30-5.90) M/uL Hgb 11.3 L (12.0-16.0) g/dL Hct 35.2 L (36.0-46.0) % MCV 95.1 (80.0-98.0) fL MCH 30.5 (27.0-32.0) pg MCHC 32.1 (31.0-37.0) g/dL RDW Std Deviation 46.8 (28.0-62.0) fl RDW Coeff of [place]on 14 (11.0-15.0) % Plt Count 214 (150-400) K/uL MPV 9.70 (7.40-12.00) fL Neut % (Auto) 51.2 (48.0-80.0) % Lymph % (Auto) 36.4 (16.0-40.0) % [place] % (Auto) 10.4 (0.0-15.0) % Eos % (Auto) 1.9 (0.0-7.0) % Baso % (Auto) 0.1 (0.0-1.5) % Neut # (Auto) 3.7 (1.4-5.7) K/uL Lymph # (Auto) 2.6 H (0.6-2.4) K/uL [place] # (Auto) 0.8 (0.0-0.8) K/uL Eos # (Auto) 0.1 (0.0-0.7) K/uL Baso # (Auto) 0.0 (0.0-0.1) K/uL Nucleated RBC % 0.0 /100WBC Nucleated RBCs # 0 K/uL Sodium 140 (136-145) mmol/L Potassium 4.1 (3.5-5.1) mmol/L Chloride 104 (98-107) mmol/L Carbon Dioxide 27.7 (21.0-32.0) mmol/L BUN 39 H (7.0-18.0) mg/dL Creatinine 1.5 H (0.6-1.0) mg/dL Est Cr Clr Drug Dosing 22.12 mL/min Estimated GFR (MDRD) 32.7 ml/min Glucose 128 H (74-106) mg/dL Calcium 8.8 (8.5-10.1) mg/dL Kyle Results Last 24 Hours: Microbiology 07/19/18 19:35 Urine Culture - Final Urine, Clean Catch Escherichia Coli Positive For Group B Strep Normal Urogenital Harper Med Orders - Current: Current Medications Acetaminophen (Tylenol) 650 mg PO Q6H PRN PRN Reason: Pain Last Admin: 07/22/18 04:17 Dose: 650 mg Albuterol (Ventolin Hfa) 0 gm INH Q4H PRN PRN Reason: Shortness of Breath Last Admin: 07/20/18 02:54 Dose: 2 inhalation Apixaban (Eliquis) 2.5 mg PO BID [facility] Last Admin: 07/22/18 09:25 Dose: 2.5 mg Cephalexin (Keflex) 250 mg PO Q12H [facility] Last Admin: 07/21/18 23:21 Dose: 250 mg Diltiazem HCl (Diltiazem) 20 mg IVPUSH Q3H PRN PRN Reason: HR over 100 Last Admin: 07/22/18 09:25 Dose: 20 mg Metoprolol Tartrate (Lopressor) 50 mg PO Q12H [facility] Last Admin: 07/21/18 23:20 Dose: 50 mg Sodium Chloride (Saline Flush) 10 ml FLUSH ASDIRECTED PRN PRN Reason: Keep Vein Open Last Admin: 07/19/18 14:32 Dose: 10 ml Sodium Chloride (Saline Flush) 2.5 ml FLUSH ASDIRECTED PRN PRN Reason: Keep Vein Open Last Admin: 07/19/18 14:32 Dose: 2.5 ml Discontinued Medications Diltiazem HCl (Diltiazem) 20 mg IVPUSH ONETIME ONE Stop: 07/19/18 14:15 Last Admin: 07/19/18 14:21 Dose: 20 mg Diltiazem HCl (Diltiazem) 20 mg IVPUSH ONETIME ONE Stop: 07/19/18 15:26 Last Admin: 07/19/18 15:40 Dose: 20 mg Furosemide (Lasix) 40 mg IVPUSH NOW ONE Stop: 07/19/18 18:25 Last Admin: 07/19/18 18:36 Dose: 40 mg Furosemide (Lasix) 40 mg IVPUSH NOW ONE Stop: 07/20/18 13:44 Last Admin: 07/20/18 14:03 Dose: 40 mg Furosemide (Lasix) 40 mg IVPUSH NOW ONE Stop: 07/21/18 11:01 Last Admin: 07/21/18 11:36 Dose: 40 mg Sodium Chloride (Normal Saline) 1,000 mls @ 125 mls/hr IV STAT ONE Stop: 07/19/18 22:18 Last Admin: 07/19/18 14:31 Dose: 125 mls/hr Metoprolol Tartrate (Lopressor) 25 mg PO Q12H [facility] Last Admin: 07/21/18 06:19 Dose: Not Given - Exam General: Alert, Oriented Neck: Supple Lungs: Clear to Auscultation, Normal Respiratory Effort Cardiovascular: Irregular Rhythm, Tachycardia GI/Abdominal Exam: Normal Bowel Sounds, Soft, Non-Tender Extremities: Normal Inspection, Non-Tender Skin: Warm, Dry, Intact - Problem List Review Problem List Initiated/Reviewed/Updated: Yes - My Orders Last 24 Hours: My Active Orders 07/21/18 11:00 cephALEXin [Keflex] 250 mg PO Q12H 07/21/18 11:08 Metoprolol Tartrate [Lopressor] 50 mg PO Q12H 07/22/18 Echo Comp wo Cont [US] Routine - Plan Plan:: 88 yo female admitted with atrial fibrillation with RVR and suspect new onset CHF exacerbation. CHF: BP low will hold lasix today, echocardiogram ordered A.fib: Metoprolol 50mg BID, continue eliquis. was given IV diltiazem this morning for HR in 140s. Ecoli UTI: treating with Keflex
[2018-07-22] MEDS: Metoprolol Tartrate 25 MG Tab PO SCH ×2 (12:24→23:40)
[2018-07-22] MEDS: Cephalexin 250 MG Cap PO SCH ×2 (12:24→23:40)
[2018-07-23] MEDS: Albuterol 8 GM Inhaler INH PRN (05:20)
[2018-07-23] MEDS: Apixaban 2.5 MG Tab PO SCH ×2 (08:01→20:14)
[2018-07-23] MEDS ORDERED: Furosemide 40 MG/4 ML VIAL IVPUSH ONE (11:00)
[2018-07-23] MEDS: Metoprolol Tartrate 25 MG Tab PO SCH ×2 (12:26→22:23)
[2018-07-23] MEDS: Cephalexin 250 MG Cap PO SCH ×2 (12:27→22:30)
--- NOTE | 2018-07-23 12:29 | PCM.PN ---
- General Info Date of Service: 07/23/18 - Review of Systems Systems Review Comment:: no shortness of breath, no palpitations - Patient Data Vitals - Most Recent: Last Vital Signs Temp 36.3 C 07/23/18 07:38 Pulse 109 H 07/23/18 07:38 Resp 17 07/23/18 07:38 BP 148/65 H 07/23/18 07:38 Pulse Ox 93 L 07/23/18 07:38 Weight - Most Recent: 93.2 kg I&O - Last 24 Hours: Intake & Output 07/22/18 07/23/18 07/23/18 22:59 06:59 14:59 Intake Total 620 650 Output Total 600 750 Balance 20 -100 Lab Results Last 24 Hours: Laboratory Results - last 24 hr 07/23/18 07/23/18 Range/Units 05:19 05:19 WBC 8.27 (4.0-11.0) K/uL RBC 3.93 L (4.30-5.90) M/uL Hgb 11.9 L (12.0-16.0) g/dL Hct 38.0 (36.0-46.0) % MCV 96.7 (80.0-98.0) fL MCH 30.3 (27.0-32.0) pg MCHC 31.3 (31.0-37.0) g/dL RDW Std Deviation 48.8 (28.0-62.0) fl RDW Coeff of [place] 14 (11.0-15.0) % Plt Count 228 (150-400) K/uL MPV 10.30 (7.40-12.00) fL Neut % (Auto) 58.3 (48.0-80.0) % Lymph % (Auto) 31.9 (16.0-40.0) % [place] % (Auto) 7.5 (0.0-15.0) % Eos % (Auto) 2.1 (0.0-7.0) % Baso % (Auto) 0.2 (0.0-1.5) % Neut # (Auto) 4.8 (1.4-5.7) K/uL Lymph # (Auto) 2.6 H (0.6-2.4) K/uL [place] # (Auto) 0.6 (0.0-0.8) K/uL Eos # (Auto) 0.2 (0.0-0.7) K/uL Baso # (Auto) 0.0 (0.0-0.1) K/uL Nucleated RBC % 0.0 /100WBC Nucleated RBCs # 0 K/uL Sodium 142 (136-145) mmol/L Potassium 4.5 (3.5-5.1) mmol/L Chloride 105 (98-107) mmol/L Carbon Dioxide 29.0 (21.0-32.0) mmol/L BUN 36 H (7.0-18.0) mg/dL Creatinine 1.3 H (0.6-1.0) mg/dL Est Cr Clr Drug Dosing 25.52 mL/min Estimated GFR (MDRD) 38.6 ml/min Glucose 125 H (74-106) mg/dL Calcium 9.2 (8.5-10.1) mg/dL Med Orders - Current: Current Medications Acetaminophen (Tylenol) 650 mg PO Q6H PRN PRN Reason: Pain Last Admin: 07/22/18 22:03 Dose: 650 mg Albuterol (Ventolin Hfa) 0 gm INH Q4H PRN PRN Reason: Shortness of Breath Last Admin: 07/23/18 05:20 Dose: 2 inhalation Apixaban (Eliquis) 2.5 mg PO BID [facility] Last Admin: 07/23/18 08:01 Dose: 2.5 mg Cephalexin (Keflex) 250 mg PO Q12H [facility] Last Admin: 07/22/18 23:40 Dose: 250 mg Diltiazem HCl (Diltiazem) 20 mg IVPUSH Q3H PRN PRN Reason: HR over 100 Last Admin: 07/22/18 09:25 Dose: 20 mg Metoprolol Tartrate (Lopressor) 75 mg PO Q12H [facility] Sodium Chloride (Saline Flush) 10 ml FLUSH ASDIRECTED PRN PRN Reason: Keep Vein Open Last Admin: 07/19/18 14:32 Dose: 10 ml Sodium Chloride (Saline Flush) 2.5 ml FLUSH ASDIRECTED PRN PRN Reason: Keep Vein Open Last Admin: 07/19/18 14:32 Dose: 2.5 ml Discontinued Medications Diltiazem HCl (Diltiazem) 20 mg IVPUSH ONETIME ONE Stop: 07/19/18 14:15 Last Admin: 07/19/18 14:21 Dose: 20 mg Diltiazem HCl (Diltiazem) 20 mg IVPUSH ONETIME ONE Stop: 07/19/18 15:26 Last Admin: 07/19/18 15:40 Dose: 20 mg Furosemide (Lasix) 40 mg IVPUSH NOW ONE Stop: 07/19/18 18:25 Last Admin: 07/19/18 18:36 Dose: 40 mg Furosemide (Lasix) 40 mg IVPUSH NOW ONE Stop: 07/20/18 13:44 Last Admin: 07/20/18 14:03 Dose: 40 mg Furosemide (Lasix) 40 mg IVPUSH NOW ONE Stop: 07/21/18 11:01 Last Admin: 07/21/18 11:36 Dose: 40 mg Furosemide (Lasix) 40 mg IVPUSH NOW ONE Stop: 07/23/18 11:01 Sodium Chloride (Normal Saline) 1,000 mls @ 125 mls/hr IV STAT ONE Stop: 07/19/18 22:18 Last Admin: 07/19/18 14:31 Dose: 125 mls/hr Metoprolol Tartrate (Lopressor) 25 mg PO Q12H [facility] Last Admin: 07/21/18 06:19 Dose: Not Given Metoprolol Tartrate (Lopressor) 50 mg PO Q12H [facility] Last Admin: 07/22/18 23:40 Dose: 50 mg - Exam General: Alert, Oriented Neck: Supple Lungs: Clear to Auscultation, Normal Respiratory Effort Cardiovascular: Regular Rate, Regular Rhythm Extremities: Non-Tender, No Pedal Edema Skin: Warm, Dry, Intact Neurological: No New Focal Deficit - Problem List Review Problem List Initiated/Reviewed/Updated: Yes - My Orders Last 24 Hours: My Active Orders 07/23/18 10:41 Metoprolol Tartrate [Lopressor] 75 mg PO Q12H 07/24/18 05:11 BASIC METABOLIC PANEL,BMP [CHEM] AM CBC WITH AUTO DIFF [HEME] AM - Plan Plan:: 88 yo female admitted with atrial fibrillation with RVR and suspect new onset CHF exacerbation. CHF:lasix 40mg daily, echocardiogram report pending A.fib: will increase Metoprolol to 75 mg BID, continue eliquis. IV diltiazem prn Ecoli UTI: treating with Keflex
[2018-07-23] MEDS: Diltiazem 25 MG/5 ML SDV IVPUSH PRN ×2 (13:15→20:13)
[2018-07-23] MEDS: Acetaminophen 325 MG Tab PO PRN (13:15)
[2018-07-23] MEDS ORDERED: traMADol 50 MG Tab PO ONE (17:10)
[2018-07-24] MEDS: Apixaban 2.5 MG Tab PO SCH ×2 (09:12→21:38)
[2018-07-24] MEDS ORDERED: Furosemide 40 MG/4 ML VIAL IVPUSH ONE (09:46)
--- NOTE | 2018-07-24 09:47 | PCM.PN ---
<Deepika Eden M - Last Filed: 07/24/18 11:01> - General Info Date of Service: 07/24/18 Admission Dx/Problem (Free Text): Admission Diagnosis/Problem Admission Diagnosis/Problem Atrial fibrillation with rapid ventricular response Subjective Update: Elisa vargas in the chair visiting with her daughter. No chest pain, sob improved. Reports weight gain overnight. No other complaints. Eager to get ECHO reports. Functional Status: Reports: Pain Controlled, Tolerating Diet, Ambulating, Urinating - Review of Systems General: Reports: No Symptoms. Denies: Fever, Weakness, Fatigue HEENT: Reports: No Symptoms. Denies: Headaches, Sore Throat Pulmonary: Reports: No Symptoms. Denies: Shortness of Breath, Cough, Sputum Cardiovascular: Reports: No Symptoms. Denies: Chest Pain Gastrointestinal: Reports: No Symptoms. Denies: Abdominal Pain, Nausea, Vomiting Genitourinary: Reports: No Symptoms. Denies: Dysuria, Frequency, Burning Musculoskeletal: Reports: Shoulder Pain (R, chronic pain) Skin: Reports: No Symptoms Neurological: Reports: No Symptoms Psychiatric: Reports: No Symptoms - Patient Data Vitals - Most Recent: Last Vital Signs Temp 96.6 F 07/24/18 07:45 Pulse 112 H 07/24/18 07:45 Resp 16 07/24/18 07:45 BP 102/65 07/24/18 07:45 Pulse Ox 92 L 07/24/18 07:45 Weight - Most Recent: 94.438 kg I&O - Last 24 Hours: Intake & Output 07/23/18 07/24/18 07/24/18 22:59 06:59 14:59 Intake Total 600 360 Output Total 400 500 Balance 200 -140 Lab Results Last 24 Hours: Laboratory Results - last 24 hr 07/24/18 07/24/18 Range/Units 05:20 05:20 WBC 7.67 (4.0-11.0) K/uL RBC 3.71 L (4.30-5.90) M/uL Hgb 11.1 L (12.0-16.0) g/dL Hct 36.1 (36.0-46.0) % MCV 97.3 (80.0-98.0) fL MCH 29.9 (27.0-32.0) pg MCHC 30.7 L (31.0-37.0) g/dL RDW Std Deviation 49.4 (28.0-62.0) fl RDW Coeff of Jameson 14 (11.0-15.0) % Plt Count 207 (150-400) K/uL MPV 10.10 (7.40-12.00) fL Neut % (Auto) 56.6 (48.0-80.0) % Lymph % (Auto) 30.5 (16.0-40.0) % Runnels % (Auto) 10.8 (0.0-15.0) % Eos % (Auto) 1.8 (0.0-7.0) % Baso % (Auto) 0.3 (0.0-1.5) % Neut # (Auto) 4.3 (1.4-5.7) K/uL Lymph # (Auto) 2.3 (0.6-2.4) K/uL Runnels # (Auto) 0.8 (0.0-0.8) K/uL Eos # (Auto) 0.1 (0.0-0.7) K/uL Baso # (Auto) 0.0 (0.0-0.1) K/uL Nucleated RBC % 0.0 /100WBC Nucleated RBCs # 0 K/uL Sodium 142 (136-145) mmol/L Potassium 5.2 H (3.5-5.1) mmol/L Chloride 106 (98-107) mmol/L Carbon Dioxide 30.5 (21.0-32.0) mmol/L BUN 45 H (7.0-18.0) mg/dL Creatinine 1.5 H (0.6-1.0) mg/dL Est Cr Clr Drug Dosing 22.12 mL/min Estimated GFR (MDRD) 32.7 ml/min Glucose 133 H (74-106) mg/dL Calcium 9.1 (8.5-10.1) mg/dL Med Orders - Current: Current Medications Acetaminophen (Tylenol) 650 mg PO Q6H PRN PRN Reason: Pain Last Admin: 07/23/18 13:15 Dose: 650 mg Albuterol (Ventolin Hfa) 0 gm INH Q4H PRN PRN Reason: Shortness of Breath Last Admin: 07/23/18 05:20 Dose: 2 inhalation Apixaban (Eliquis) 2.5 mg PO BID [facility] Last Admin: 07/24/18 09:12 Dose: 2.5 mg Cephalexin (Keflex) 250 mg PO Q12H [facility] Last Admin: 07/23/18 22:30 Dose: 250 mg Diltiazem HCl (Diltiazem) 20 mg IVPUSH Q3H PRN PRN Reason: HR over 100 Last Admin: 07/23/18 20:13 Dose: 20 mg Metoprolol Tartrate (Lopressor) 75 mg PO Q12H [facility] Last Admin: 07/23/18 22:23 Dose: 75 mg Sodium Chloride (Saline Flush) 10 ml FLUSH ASDIRECTED PRN PRN Reason: Keep Vein Open Last Admin: 07/19/18 14:32 Dose: 10 ml Sodium Chloride (Saline Flush) 2.5 ml FLUSH ASDIRECTED PRN PRN Reason: Keep Vein Open Last Admin: 07/19/18 14:32 Dose: 2.5 ml Discontinued Medications Diltiazem HCl (Diltiazem) 20 mg IVPUSH ONETIME ONE Stop: 07/19/18 14:15 Last Admin: 07/19/18 14:21 Dose: 20 mg Diltiazem HCl (Diltiazem) 20 mg IVPUSH ONETIME ONE Stop: 07/19/18 15:26 Last Admin: 07/19/18 15:40 Dose: 20 mg Furosemide (Lasix) 40 mg IVPUSH NOW ONE Stop: 07/19/18 18:25 Last Admin: 07/19/18 18:36 Dose: 40 mg Furosemide (Lasix) 40 mg IVPUSH NOW ONE Stop: 07/20/18 13:44 Last Admin: 07/20/18 14:03 Dose: 40 mg Furosemide (Lasix) 40 mg IVPUSH NOW ONE Stop: 07/21/18 11:01 Last Admin: 07/21/18 11:36 Dose: 40 mg Furosemide (Lasix) 40 mg IVPUSH NOW ONE Stop: 07/23/18 11:01 Last Admin: 07/23/18 12:28 Dose: 40 mg Sodium Chloride (Normal Saline) 1,000 mls @ 125 mls/hr IV STAT ONE Stop: 07/19/18 22:18 Last Admin: 07/19/18 14:31 Dose: 125 mls/hr Metoprolol Tartrate (Lopressor) 25 mg PO Q12H [facility] Last Admin: 07/21/18 06:19 Dose: Not Given Metoprolol Tartrate (Lopressor) 50 mg PO Q12H [facility] Last Admin: 07/22/18 23:40 Dose: 50 mg Tramadol HCl (Ultram) 50 mg PO ONETIME ONE Stop: 07/23/18 17:11 Last Admin: 07/23/18 18:05 Dose: 50 mg - Exam General: Alert, Oriented, Cooperative, No Acute Distress Lungs: Normal Respiratory Effort, Crackles (fine crackles bibasilar) Cardiovascular: Regular Rate, No Murmurs, Irregular Rhythm GI/Abdominal Exam: Normal Bowel Sounds, Soft, Non-Tender, No Organomegaly Extremities: Normal Inspection, Normal Range of Motion, Non-Tender, Pedal Edema (scant +1 non pitting edema) Neurological: No New Focal Deficit Psy/Mental Status: Alert, Normal Affect, Normal Mood - Problem List & Annotations (1) Atrial fibrillation with RVR SNOMED Code(s): 848576334954286 Code(s): I48.91 - UNSPECIFIED ATRIAL FIBRILLATION Status: Acute Current Visit: Yes (2) CHF (congestive heart failure) SNOMED Code(s): 82254786 Code(s): I50.9 - HEART FAILURE, UNSPECIFIED Status: Acute Current Visit: Yes Qualifiers: Heart failure chronicity: acute (3) UTI (urinary tract infection) SNOMED Code(s): 46358759 Code(s): N39.0 - URINARY TRACT INFECTION, SITE NOT SPECIFIED Status: Acute Current Visit: Yes Qualifiers: Urinary tract infection type: acute cystitis - Problem List Review Problem List Initiated/Reviewed/Updated: Yes - My Orders Last 24 Hours: My Active Orders 07/24/18 09:46 Furosemide [Lasix] 40 mg IVPUSH NOW ONE - Plan Plan:: 88 yo female admitted with atrial fibrillation with RVR and suspect new onset CHF exacerbation. 1. CHF: Continue Lasix 40mg IV daily, echocardiogram report pending Strict I/O daily weight. 2. A.fib: Rates 90-105, continue Metoprolol 75 mg BID, Continue eliquis. IV diltiazem prn 3. Ecoli UTI: treating with Keflex VTE prophylaxis: Eliquis Dispo; 1-2 days pending improvement <Wong Chambers - Last Filed: 07/24/18 15:05> - General Info Admission Dx/Problem (Free Text): I have seen and examined to patient independently of Deepika Eden CNP. I have discussed the case for care of this patient with her. I have reviewed and approve of the plan of care as outlined by [facility]. Please see orders. - Patient Data Vitals - Most Recent: Last Vital Signs Temp 35.8 C 07/24/18 11:00 Pulse 102 H 07/24/18 11:00 Resp 18 07/24/18 11:00 BP 104/76 07/24/18 11:00 Pulse Ox 98 07/24/18 11:00 I&O - Last 24 Hours: Intake & Output 07/24/18 07/24/18 07/24/18 06:59 14:59 22:59 Intake Total 360 Output Total 500 Balance -140 Lab Results Last 24 Hours: Laboratory Results - last 24 hr 07/24/18 07/24/18 Range/Units 05:20 05:20 WBC 7.67 (4.0-11.0) K/uL RBC 3.71 L (4.30-5.90) M/uL Hgb 11.1 L (12.0-16.0) g/dL Hct 36.1 (36.0-46.0) % MCV 97.3 (80.0-98.0) fL MCH 29.9 (27.0-32.0) pg MCHC 30.7 L (31.0-37.0) g/dL RDW Std Deviation 49.4 (28.0-62.0) fl RDW Coeff of Jameson 14 (11.0-15.0) % Plt Count 207 (150-400) K/uL MPV 10.10 (7.40-12.00) fL Neut % (Auto) 56.6 (48.0-80.0) % Lymph % (Auto) 30.5 (16.0-40.0) % Runnels % (Auto) 10.8 (0.0-15.0) % Eos % (Auto) 1.8 (0.0-7.0) % Baso % (Auto) 0.3 (0.0-1.5) % Neut # (Auto) 4.3 (1.4-5.7) K/uL Lymph # (Auto) 2.3 (0.6-2.4) K/uL Runnels # (Auto) 0.8 (0.0-0.8) K/uL Eos # (Auto) 0.1 (0.0-0.7) K/uL Baso # (Auto) 0.0 (0.0-0.1) K/uL Nucleated RBC % 0.0 /100WBC Nucleated RBCs # 0 K/uL Sodium 142 (136-145) mmol/L Potassium 5.2 H (3.5-5.1) mmol/L Chloride 106 (98-107) mmol/L Carbon Dioxide 30.5 (21.0-32.0) mmol/L BUN 45 H (7.0-18.0) mg/dL Creatinine 1.5 H (0.6-1.0) mg/dL Est Cr Clr Drug Dosing 22.12 mL/min Estimated GFR (MDRD) 32.7 ml/min Glucose 133 H (74-106) mg/dL Calcium 9.1 (8.5-10.1) mg/dL Med Orders - Current: Current Medications Acetaminophen (Tylenol) 650 mg PO Q6H PRN PRN Reason: Pain Last Admin: 07/24/18 10:46 Dose: 650 mg Albuterol (Ventolin Hfa) 0 gm INH Q4H PRN PRN Reason: Shortness of Breath Last Admin: 07/23/18 05:20 Dose: 2 inhalation Apixaban (Eliquis) 2.5 mg PO BID [facility] Last Admin: 07/24/18 09:12 Dose: 2.5 mg Cephalexin (Keflex) 250 mg PO Q12H [facility] Last Admin: 07/24/18 10:50 Dose: 250 mg Diltiazem HCl (Diltiazem) 20 mg IVPUSH Q3H PRN PRN Reason: HR over 100 Last Admin: 07/23/18 20:13 Dose: 20 mg Furosemide (Lasix) 40 mg IVPUSH BIDDIURETIC [facility] Last Admin: 07/24/18 14:17 Dose: 40 mg Metoprolol Tartrate (Lopressor) 75 mg PO Q12H [facility] Last Admin: 07/24/18 10:34 Dose: 75 mg Sodium Chloride (Saline Flush) 10 ml FLUSH ASDIRECTED PRN PRN Reason: Keep Vein Open Last Admin: 07/19/18 14:32 Dose: 10 ml Sodium Chloride (Saline Flush) 2.5 ml FLUSH ASDIRECTED PRN PRN Reason: Keep Vein Open Last Admin: 07/19/18 14:32 Dose: 2.5 ml Discontinued Medications Diltiazem HCl (Diltiazem) 20 mg IVPUSH ONETIME ONE Stop: 07/19/18 14:15 Last Admin: 07/19/18 14:21 Dose: 20 mg Diltiazem HCl (Diltiazem) 20 mg IVPUSH ONETIME ONE Stop: 07/19/18 15:26 Last Admin: 07/19/18 15:40 Dose: 20 mg Furosemide (Lasix) 40 mg IVPUSH NOW ONE Stop: 07/19/18 18:25 Last Admin: 07/19/18 18:36 Dose: 40 mg Furosemide (Lasix) 40 mg IVPUSH NOW ONE Stop: 07/20/18 13:44 Last Admin: 07/20/18 14:03 Dose: 40 mg Furosemide (Lasix) 40 mg IVPUSH NOW ONE Stop: 07/21/18 11:01 Last Admin: 07/21/18 11:36 Dose: 40 mg Furosemide (Lasix) 40 mg IVPUSH NOW ONE Stop: 07/23/18 11:01 Last Admin: 07/23/18 12:28 Dose: 40 mg Furosemide (Lasix) 40 mg IVPUSH NOW ONE Stop: 07/24/18 09:47 Last Admin: 07/24/18 10:32 Dose: 40 mg Sodium Chloride (Normal Saline) 1,000 mls @ 125 mls/hr IV STAT ONE Stop: 07/19/18 22:18 Last Admin: 07/19/18 14:31 Dose: 125 mls/hr Metoprolol Tartrate (Lopressor) 25 mg PO Q12H [facility] Last Admin: 07/21/18 06:19 Dose: Not Given Metoprolol Tartrate (Lopressor) 50 mg PO Q12H [facility] Last Admin: 07/22/18 23:40 Dose: 50 mg Tramadol HCl (Ultram) 50 mg PO ONETIME ONE Stop: 07/23/18 17:11 Last Admin: 07/23/18 18:05 Dose: 50 mg
[2018-07-24] MEDS: Metoprolol Tartrate 25 MG Tab PO SCH ×2 (10:34→21:38)
[2018-07-24] MEDS: Acetaminophen 325 MG Tab PO PRN ×2 (10:46→22:49)
[2018-07-24] MEDS: Cephalexin 250 MG Cap PO SCH ×2 (10:50→22:52)
[2018-07-24] MEDS: Furosemide 40 MG/4 ML VIAL IVPUSH SCH (14:17)
--- NOTE | 2018-07-24 15:13 | ECHO ---
EXAM DATE: 07/19/18 PATIENT'S AGE: 88 The echocardiogram report can be seen in this patient's EMR (Electronic Medical Record) in the Reports section. The report has also been scanned into PACs. ISAAC
[2018-07-24] MEDS ORDERED: Metoprolol Tartrate 25 MG Tab PO SCH (18:45)
[2018-07-24] MEDS ORDERED: Lisinopril 5 MG Tab PO ONE (19:00)
--- NOTE | 2018-07-24 20:45 | CONS ---
DATE OF CONSULTATION: DATE OF : 1930 PRIMARY CARE PHYSICIAN: Unknown PCP REASON FOR CONSULTATION: Cardiomyopathy. HISTORY OF PRESENT ILLNESS: This is an 88-year-old female, history of hypertension in the past, history of diabetes and chronic back pain. She was also noted to have a left bundle-branch block pattern for a long time. She was here in the hospital because of 5 days of symptom of shortness of breath. She is a very good 88 years old lady, very pleasant. She has been in her usual state of health until a week ago when she started feeling more short of breath. She thought it might be sinus allergies. She also feels like her leg is puffy most likely. She pushed off to see a doctor and she kept waiting until 1 day prior to the hospital, she started being so short of breath, to the point that she could not walk from the table to the kitchen and she feels off breath. She could never lay flat for a long time because of a back problem and she feels like she could not breathe, but it started since she was young. Nothing new at this point. She also denied a history of heart attack, heart stent. She was noted to have abnormal stress test in 2013 and later had the angiogram, which is turned out to be no significant blockage. The reason for the stress test at that time is for the preop and noted to have exertional chest pain. She did not see any heart doctor since. She also denied a history of AFib. When she was presented here to the hospital, she was found to have elevated BNP with the level of 463 and the chest x-ray show mild cardiomegaly and she was treated with Lasix 40 mg IV once a day. She has been making the urine output, however, I do not believe that the urine output has been obtained accurately and her weight seemed to be fluctuated throughout the hospital. It was not clear that the weight was obtained by the bed scale or over the standing scale. An echocardiogram was done showing severe LV systolic dysfunction. Her ejection fraction possibly 15% to 20%. It only showed [id number] mitral valve regurgitation with severe biatrial dilatation. Her past medical history including hypertension, but not on any medication, hard of hearing, diabetes type 2, chronic left bundle-branch block pattern. ER COURSE: When she got here to the hospital, she was found to have atrial fibrillation and RVR. She has been known to have left bundle-branch block pattern for a long time and she was started on metoprolol currently on 75 twice a day. After she had been diuresed she has felt better. She feels that she can walk further and her leg swelling went down. CURRENT MEDICATIONS: Including Eliquis 2.5 mg twice a day, Lasix 40 mg IV once a day, and metoprolol 75 mg twice a day. ALLERGIES: She is allergic to aspirin, prednisone, shellfish, and soy. PAST SURGICAL HISTORY: History of appendectomy, breast surgery, cataract surgery, gallbladder removal, and hysterectomy. FAMILY HISTORY: Mother had a history of hypertension. Father had a history of hypertension. SOCIAL HISTORY: Nonsmoker. Occasional alcohol drinking. No drug use. REVIEW OF SYSTEMS: As indicated in HPI, otherwise has been negative. HOME MEDICATIONS: She has been off the hydrochlorothiazide for almost 8 months and her blood pressure ranging between 125 to 145/70 to 80. PHYSICAL EXAMINATION: VITAL SIGNS: Initial blood pressure was 124/58. Current blood pressure is 107/63, initial heart rate was around 94, currently heart rate ranging between 90 to 110, O2 sat is 96% on room air. The initial O2 sat was 97% as well. Temperature 96.5. Her weight today 208. HEENT: Not pale. No jaundice. NECK: JVD positive. Irregular Wiseman A wave. HEART: Totally irregular. LUNGS: Crackles bilaterally. No wheezing. Decreased breath sounds. ABDOMEN: Soft, nontender. Bowel sounds are present. No hepatosplenomegaly. EXTREMITIES: Edema 1+. Her laboratories, CBC showed WBC of 7, hematocrit of 36, hemoglobin of 11, and platelets of 207. Sodium 142, potassium 5.2, chloride 106, bicarb 30, BUN 45, and creatinine 1.5. Her baseline is 1.3. A1c 6.5 that was 3 years ago. Troponin was negative x1. BNP 463. IMAGING STUDIES: EKG in November 2013, left bundle-branch block pattern, heart rate is 78, sinus rhythm rate of 135. In May 2015, sinus tachycardia, heart rate of 101, QRS duration 131, left bundle-branch block pattern. EKG in June 2018, atrial fibrillation, heart rate of 160, QRS duration 129. Echocardiogram in June 2018, ejection fraction of less than 20%, severe LV systolic dysfunction, severe global hypokinesis, mild LVH, and [id number] mitral regurgitation. Elevated RVSP. Severe biatrial dilatation and moderate TR. Also, she has the angiogram done in April 2014 and it is noted that like there is no significant coronary artery disease, normal left ventricular filling pressure at that time, uncontrolled blood pressure. ASSESSMENT AND PLAN: This is an 88-year-old female, who has a new onset of acute decompensated systolic heart failure, ejection fraction of 20% with left ventricular hypertrophy, [id number] mitral valve regurgitation with unknown onset of atrial fibrillation, heart rate of rapid ventricular response and chronic left bundle-branch block pattern. She did have coronary angiogram done in 2014. At that time, noted no significant coronary artery disease and seemed to be reason only like 4 years ago that she had an angiogram. My suspicion for having the significant coronary artery disease causing cardiomyopathy seemed to be not very high. 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 The main thing is that like she could not feel the atrial fibrillation heart racing. She may have had atrial fibrillation for a long time and not knowing this about it. We should get her heart rate controlled. I will increase her metoprolol from 75 twice a day to 100 mg twice a day along with I will start her on DENZEL inhibitor 2.5 mg once a day and I spent a lengthy time explaining about the atrial fibrillation as well as cardiomyopathy and also evaluation for ICD implantation. I also introduced her the idea of having the variable ICD as well. She will think about it and she will let us know about the decision. She is noted to have DNR/DNI, but she is okay to have the defibrillator to be put on. She needs to be on heart failure medication and a heart failure regimen including DENZEL inhibitor. I will also add antagonists and beta stephan and up- titrate it to the maximal as tolerated. She needs to be on that medication for at least 3 months and repeat an echo. In the meantime, we need to get her heart rate controlled as well and if her heart function LV ejection fraction less than 35% still, she further needs to be seen by EPS. I do think her heart failure is most likely due to atrial fibrillation with rapid ventricular response and tachycardia related. Her CHADS-VASc score is high, including heart failure, hypertension, noted to have diabetes, her age and gender, at least 6 points. Eliquis was started. Explained to her about the risks of a stroke as well as atrial fibrillation. I will keep following her. ELI / MEL /[id number] MTDD
[2018-07-25] MEDS: Acetaminophen 325 MG Tab PO PRN ×4 (04:36→22:15)
[2018-07-25] MEDS: Furosemide 40 MG/4 ML VIAL IVPUSH SCH ×2 (08:52→14:37)
[2018-07-25] MEDS: Apixaban 2.5 MG Tab PO SCH ×2 (08:53→20:27)
[2018-07-25] MEDS: Metoprolol Tartrate 25 MG Tab PO SCH ×2 (08:56→20:27)
[2018-07-25] MEDS: Lisinopril 5 MG Tab PO SCH (08:57)
--- NOTE | 2018-07-25 10:58 | PCM.PN ---
<Deepika Eden M - Last Filed: 07/25/18 10:36> - General Info Date of Service: 07/25/18 Admission Dx/Problem (Free Text): A fib Subjective Update: Doing well today, reports edema is down in legs. No shortness of breath or chest pain. No palpitations. No other concerns. Would like to speak with Dr Enriquez today. Functional Status: Reports: Pain Controlled, Tolerating Diet, Ambulating, Urinating - Review of Systems General: Reports: No Symptoms. Denies: Fever, Weakness, Fatigue HEENT: Reports: No Symptoms. Denies: Sore Throat Pulmonary: Reports: No Symptoms. Denies: Shortness of Breath, Cough Cardiovascular: Denies: Chest Pain, Edema Gastrointestinal: Reports: No Symptoms. Denies: Abdominal Pain, Nausea, Vomiting Genitourinary: Reports: No Symptoms. Denies: Dysuria, Frequency, Burning Musculoskeletal: Reports: No Symptoms Skin: Reports: No Symptoms Neurological: Reports: No Symptoms Psychiatric: Reports: No Symptoms - Patient Data Vitals - Most Recent: Last Vital Signs Temp 96.1 F 07/25/18 08:00 Pulse 71 07/25/18 08:56 Resp 18 07/25/18 08:00 BP 115/66 07/25/18 08:57 Pulse Ox 94 L 07/25/18 08:00 Weight - Most Recent: 94.03 kg I&O - Last 24 Hours: Intake & Output 07/24/18 07/25/18 07/25/18 22:59 06:59 14:59 Intake Total 1500 650 Output Total 3600 900 Balance -2100 -250 Lab Results Last 24 Hours: Laboratory Results - last 24 hr 07/25/18 07/25/18 07/25/18 Range/Units 05:34 05:34 05:34 WBC 7.02 (4.0-11.0) K/uL RBC 3.68 L (4.30-5.90) M/uL Hgb 11.2 L (12.0-16.0) g/dL Hct 35.3 L (36.0-46.0) % MCV 95.9 (80.0-98.0) fL MCH 30.4 (27.0-32.0) pg MCHC 31.7 (31.0-37.0) g/dL RDW Std Deviation 47.4 (28.0-62.0) fl RDW Coeff of Jameson 14 (11.0-15.0) % Plt Count 194 (150-400) K/uL MPV 9.70 (7.40-12.00) fL Neut % (Auto) 53.9 (48.0-80.0) % Lymph % (Auto) 32.1 (16.0-40.0) % [place] % (Auto) 11.0 (0.0-15.0) % Eos % (Auto) 2.6 (0.0-7.0) % Baso % (Auto) 0.4 (0.0-1.5) % Neut # (Auto) 3.8 (1.4-5.7) K/uL Lymph # (Auto) 2.3 (0.6-2.4) K/uL [place] # (Auto) 0.8 (0.0-0.8) K/uL Eos # (Auto) 0.2 (0.0-0.7) K/uL Baso # (Auto) 0.0 (0.0-0.1) K/uL Nucleated RBC % 0.0 /100WBC Nucleated RBCs # 0 K/uL Sodium 138 (136-145) mmol/L Potassium 4.0 (3.5-5.1) mmol/L Chloride 102 (98-107) mmol/L Carbon Dioxide 27.5 (21.0-32.0) mmol/L BUN 46 H (7.0-18.0) mg/dL Creatinine 1.4 H (0.6-1.0) mg/dL Est Cr Clr Drug Dosing 23.69 mL/min Estimated GFR (MDRD) 35.4 ml/min Glucose 125 H (74-106) mg/dL Calcium 8.7 (8.5-10.1) mg/dL Magnesium 1.9 (1.8-2.4) mg/dL TSH 3rd Generation 1.18 (0.36-3.74) uIU/mL Med Orders - Current: Current Medications Acetaminophen (Tylenol) 650 mg PO Q6H PRN PRN Reason: Pain Last Admin: 07/25/18 09:03 Dose: 650 mg Albuterol (Ventolin Hfa) 0 gm INH Q4H PRN PRN Reason: Shortness of Breath Last Admin: 07/23/18 05:20 Dose: 2 inhalation Apixaban (Eliquis) 2.5 mg PO BID [facility] Last Admin: 07/25/18 08:53 Dose: 2.5 mg Cephalexin (Keflex) 250 mg PO Q12H [facility] Last Admin: 07/24/18 22:52 Dose: 250 mg Diltiazem HCl (Diltiazem) 20 mg IVPUSH Q3H PRN PRN Reason: HR over 100 Last Admin: 07/23/18 20:13 Dose: 20 mg Furosemide (Lasix) 40 mg IVPUSH BIDDIURETIC [facility] Last Admin: 07/25/18 08:52 Dose: 40 mg Lisinopril (Prinivil) 2.5 mg PO DAILY [facility] Last Admin: 07/25/18 08:57 Dose: 2.5 mg Metoprolol Tartrate (Lopressor) 100 mg PO Q12H [facility] Last Admin: 07/25/18 08:56 Dose: 100 mg Ipratropium Nasal (Solution 0.06%) 2 each NASBOTH BID PRN PRN Reason: NASAL ALLERGY SYMPTOMS Sodium Chloride (Saline Flush) 10 ml FLUSH ASDIRECTED PRN PRN Reason: Keep Vein Open Last Admin: 07/19/18 14:32 Dose: 10 ml Sodium Chloride (Saline Flush) 2.5 ml FLUSH ASDIRECTED PRN PRN Reason: Keep Vein Open Last Admin: 07/19/18 14:32 Dose: 2.5 ml Discontinued Medications Diltiazem HCl (Diltiazem) 20 mg IVPUSH ONETIME ONE Stop: 07/19/18 14:15 Last Admin: 07/19/18 14:21 Dose: 20 mg Diltiazem HCl (Diltiazem) 20 mg IVPUSH ONETIME ONE Stop: 07/19/18 15:26 Last Admin: 07/19/18 15:40 Dose: 20 mg Furosemide (Lasix) 40 mg IVPUSH NOW ONE Stop: 07/19/18 18:25 Last Admin: 07/19/18 18:36 Dose: 40 mg Furosemide (Lasix) 40 mg IVPUSH NOW ONE Stop: 07/20/18 13:44 Last Admin: 07/20/18 14:03 Dose: 40 mg Furosemide (Lasix) 40 mg IVPUSH NOW ONE Stop: 07/21/18 11:01 Last Admin: 07/21/18 11:36 Dose: 40 mg Furosemide (Lasix) 40 mg IVPUSH NOW ONE Stop: 07/23/18 11:01 Last Admin: 07/23/18 12:28 Dose: 40 mg Furosemide (Lasix) 40 mg IVPUSH NOW ONE Stop: 07/24/18 09:47 Last Admin: 07/24/18 10:32 Dose: 40 mg Sodium Chloride (Normal Saline) 1,000 mls @ 125 mls/hr IV STAT ONE Stop: 07/19/18 22:18 Last Admin: 07/19/18 14:31 Dose: 125 mls/hr Lisinopril (Prinivil) 2.5 mg PO ONETIME ONE Stop: 07/24/18 19:01 Last Admin: 07/24/18 19:45 Dose: 2.5 mg Metoprolol Tartrate (Lopressor) 25 mg PO Q12H [facility] Last Admin: 07/21/18 06:19 Dose: Not Given Metoprolol Tartrate (Lopressor) 50 mg PO Q12H [facility] Last Admin: 07/22/18 23:40 Dose: 50 mg Metoprolol Tartrate (Lopressor) 75 mg PO Q12H [facility] Last Admin: 07/24/18 10:34 Dose: 75 mg Metoprolol Tartrate (Lopressor) 100 mg PO Q12H [facility] Last Admin: 07/24/18 20:14 Dose: Not Given Tramadol HCl (Ultram) 50 mg PO ONETIME ONE Stop: 07/23/18 17:11 Last Admin: 07/23/18 18:05 Dose: 50 mg - Exam General: Alert, Oriented, Cooperative, No Acute Distress Lungs: Clear to Auscultation, Normal Respiratory Effort Cardiovascular: Regular Rate, Irregular Rhythm GI/Abdominal Exam: Normal Bowel Sounds, Soft, Non-Tender Extremities: Normal Inspection, Normal Range of Motion, Non-Tender, No Pedal Edema Neurological: No New Focal Deficit Psy/Mental Status: Alert, Normal Affect, Normal Mood - Problem List & Annotations (1) Atrial fibrillation with RVR SNOMED Code(s): 766378272526109 Code(s): I48.91 - UNSPECIFIED ATRIAL FIBRILLATION Status: Acute Current Visit: Yes (2) CHF (congestive heart failure) SNOMED Code(s): 76573886 Code(s): I50.9 - HEART FAILURE, UNSPECIFIED Status: Acute Current Visit: Yes Qualifiers: Heart failure chronicity: acute (3) UTI (urinary tract infection) SNOMED Code(s): 14854537 Code(s): N39.0 - URINARY TRACT INFECTION, SITE NOT SPECIFIED Status: Acute Current Visit: Yes Qualifiers: Urinary tract infection type: acute cystitis - Problem List Review Problem List Initiated/Reviewed/Updated: Yes - My Orders Last 24 Hours: My Active Orders 07/24/18 14:00 Furosemide [Lasix] 40 mg IVPUSH BIDDIURETIC 07/24/18 14:01 Consult to Physician [CONS] Routine 07/24/18 14:02 Notify Provider Consults [RC] ASDIRECTED 07/25/18 08:58 Patient's Own Medication [Ptom] 2 each NASBOTH BID PRN 07/25/18 09:00 Lisinopril [Prinivil] 2.5 mg PO DAILY 07/26/18 05:11 MAGNESIUM [CHEM] AM 07/27/18 05:11 MAGNESIUM [CHEM] AM - Plan Plan:: 88 yo female admitted with atrial fibrillation with RVR and suspect new onset CHF exacerbation. 1. CHF: Improving Continue Lasix. Echocardiogram revealed LV EF <20%, global and severely decreased LV systolic function, with elevated left atrial and L entricular end diastolic pressures. Dr Enriquez consulted. Recommended starting DENZEL inhibitor, Lisinopril 2.5 mg started. Strict I/O daily weight. Will follow with Dr Enriquez. 2. A.fib: Improved, Increased Metoprolol 100 mg BID, Continue Eliquis. 3. Ecoli UTI: treating with Keflex, today is last day of dosing to complete treatment VTE prophylaxis: Eliquis Dispo; 1 more day <Wong Chambers - Last Filed: 07/25/18 13:12> - General Info Admission Dx/Problem (Free Text): I have seen and examined to patient independently of Deepika Eden CNP. I have discussed the case for care of this patient with her. I have reviewed and approve of the plan of care as outlined by CATHERINE. Please see orders. - Patient Data Vitals - Most Recent: Last Vital Signs Temp 36.4 C 07/25/18 11:44 Pulse 79 07/25/18 11:44 Resp 16 05/02/19 11:44 BP 93/57 L 07/25/18 11:44 Pulse Ox 95 07/25/18 11:44 I&O - Last 24 Hours: Intake & Output 07/24/18 07/25/18 07/25/18 22:59 06:59 14:59 Intake Total 1500 650 Output Total 3600 900 Balance -2100 -250 Lab Results Last 24 Hours: Laboratory Results - last 24 hr 07/25/18 07/25/18 07/25/18 Range/Units 05:34 05:34 05:34 WBC 7.02 (4.0-11.0) K/uL RBC 3.68 L (4.30-5.90) M/uL Hgb 11.2 L (12.0-16.0) g/dL Hct 35.3 L (36.0-46.0) % MCV 95.9 (80.0-98.0) fL MCH 30.4 (27.0-32.0) pg MCHC 31.7 (31.0-37.0) g/dL RDW Std Deviation 47.4 (28.0-62.0) fl RDW Coeff of Jameson 14 (11.0-15.0) % Plt Count 194 (150-400) K/uL MPV 9.70 (7.40-12.00) fL Neut % (Auto) 53.9 (48.0-80.0) % Lymph % (Auto) 32.1 (16.0-40.0) % [place] % (Auto) 11.0 (0.0-15.0) % Eos % (Auto) 2.6 (0.0-7.0) % Baso % (Auto) 0.4 (0.0-1.5) % Neut # (Auto) 3.8 (1.4-5.7) K/uL Lymph # (Auto) 2.3 (0.6-2.4) K/uL [place] # (Auto) 0.8 (0.0-0.8) K/uL Eos # (Auto) 0.2 (0.0-0.7) K/uL Baso # (Auto) 0.0 (0.0-0.1) K/uL Nucleated RBC % 0.0 /100WBC Nucleated RBCs # 0 K/uL Sodium 138 (136-145) mmol/L Potassium 4.0 (3.5-5.1) mmol/L Chloride 102 (98-107) mmol/L Carbon Dioxide 27.5 (21.0-32.0) mmol/L BUN 46 H (7.0-18.0) mg/dL Creatinine 1.4 H (0.6-1.0) mg/dL Est Cr Clr Drug Dosing 23.69 mL/min Estimated GFR (MDRD) 35.4 ml/min Glucose 125 H (74-106) mg/dL Calcium 8.7 (8.5-10.1) mg/dL Magnesium 1.9 (1.8-2.4) mg/dL TSH 3rd Generation 1.18 (0.36-3.74) uIU/mL Med Orders - Current: Current Medications Acetaminophen (Tylenol) 650 mg PO Q6H PRN PRN Reason: Pain Last Admin: 07/25/18 09:03 Dose: 650 mg Albuterol (Ventolin Hfa) 0 gm INH Q4H PRN PRN Reason: Shortness of Breath Last Admin: 07/23/18 05:20 Dose: 2 inhalation Apixaban (Eliquis) 2.5 mg PO BID [facility] Last Admin: 07/25/18 08:53 Dose: 2.5 mg Cephalexin (Keflex) 250 mg PO Q12H [facility] Last Admin: 07/25/18 12:46 Dose: 250 mg Diltiazem HCl (Diltiazem) 20 mg IVPUSH Q3H PRN PRN Reason: HR over 100 Last Admin: 07/23/18 20:13 Dose: 20 mg Furosemide (Lasix) 40 mg IVPUSH BIDDIURETIC [place] Last Admin: 07/25/18 08:52 Dose: 40 mg Lisinopril (Prinivil) 2.5 mg PO DAILY [facility] Last Admin: 07/25/18 08:57 Dose: 2.5 mg Metoprolol Tartrate (Lopressor) 100 mg PO Q12H [facility] Last Admin: 07/25/18 08:56 Dose: 100 mg Ipratropium Nasal (Solution 0.06%) 2 each NASBOTH BID PRN PRN Reason: NASAL ALLERGY SYMPTOMS Last Admin: 07/25/18 11:35 Dose: 2 each Sodium Chloride (Saline Flush) 10 ml FLUSH ASDIRECTED PRN PRN Reason: Keep Vein Open Last Admin: 07/19/18 14:32 Dose: 10 ml Sodium Chloride (Saline Flush) 2.5 ml FLUSH ASDIRECTED PRN PRN Reason: Keep Vein Open Last Admin: 07/19/18 14:32 Dose: 2.5 ml Spironolactone (Aldactone) 12.5 mg PO DAILY [facility] Last Admin: 07/25/18 12:47 Dose: 12.5 mg Discontinued Medications Diltiazem HCl (Diltiazem) 20 mg IVPUSH ONETIME ONE Stop: 07/19/18 14:15 Last Admin: 07/19/18 14:21 Dose: 20 mg Diltiazem HCl (Diltiazem) 20 mg IVPUSH ONETIME ONE Stop: 07/19/18 15:26 Last Admin: 07/19/18 15:40 Dose: 20 mg Furosemide (Lasix) 40 mg IVPUSH NOW ONE Stop: 07/19/18 18:25 Last Admin: 07/19/18 18:36 Dose: 40 mg Furosemide (Lasix) 40 mg IVPUSH NOW ONE Stop: 07/20/18 13:44 Last Admin: 07/20/18 14:03 Dose: 40 mg Furosemide (Lasix) 40 mg IVPUSH NOW ONE Stop: 07/21/18 11:01 Last Admin: 07/21/18 11:36 Dose: 40 mg Furosemide (Lasix) 40 mg IVPUSH NOW ONE Stop: 07/23/18 11:01 Last Admin: 07/23/18 12:28 Dose: 40 mg Furosemide (Lasix) 40 mg IVPUSH NOW ONE Stop: 07/24/18 09:47 Last Admin: 07/24/18 10:32 Dose: 40 mg Sodium Chloride (Normal Saline) 1,000 mls @ 125 mls/hr IV STAT ONE Stop: 07/19/18 22:18 Last Admin: 07/19/18 14:31 Dose: 125 mls/hr Lisinopril (Prinivil) 2.5 mg PO ONETIME ONE Stop: 07/24/18 19:01 Last Admin: 07/24/18 19:45 Dose: 2.5 mg Metoprolol Tartrate (Lopressor) 25 mg PO Q12H [facility] Last Admin: 07/21/18 06:19 Dose: Not Given Metoprolol Tartrate (Lopressor) 50 mg PO Q12H [place] Last Admin: 07/22/18 23:40 Dose: 50 mg Metoprolol Tartrate (Lopressor) 75 mg PO Q12H [place] Last Admin: 07/24/18 10:34 Dose: 75 mg Metoprolol Tartrate (Lopressor) 100 mg PO Q12H [facility] Last Admin: 07/24/18 20:14 Dose: Not Given Tramadol HCl (Ultram) 50 mg PO ONETIME ONE Stop: 07/23/18 17:11 Last Admin: 07/23/18 18:05 Dose: 50 mg
[2018-07-25] MEDS: IPRATROPIUM 0.06% NASBOTH PRN ×2 (11:35→22:10)
[2018-07-25] MEDS: Cephalexin 250 MG Cap PO SCH ×2 (12:46→22:13)
[2018-07-25] MEDS: Spironolactone 25 MG Tab PO SCH (12:47)
[2018-07-26] MEDS: Metoprolol Tartrate 25 MG Tab PO SCH (08:54)
[2018-07-26] MEDS: Apixaban 2.5 MG Tab PO SCH (08:56)
[2018-07-26] MEDS: Lisinopril 5 MG Tab PO SCH (08:56)
[2018-07-26] MEDS: Spironolactone 25 MG Tab PO SCH (08:57)
[2018-07-26] MEDS: Acetaminophen 325 MG Tab PO PRN (08:58)
[2018-07-26] MEDS ORDERED: Furosemide 40 MG Tab PO SCH (09:00)
[2018-07-26] MEDS: Cephalexin 250 MG Cap PO SCH (10:38)
[2018-07-26] MEDS: IPRATROPIUM 0.06% NASBOTH PRN (10:39)
--- NOTE | 2018-07-26 11:19 | PCM.DCSUM1 ---
<Deepika Eden M - Last Filed: 07/26/18 12:15> Discharge Summary - Hospital Course Brief History: 88 yo female who presented with one day history of shortness of breath. Patient reports and increase in 10 lbs in past week. She also noticed increase swelling of her legs. She does not sleep on her back due to shortness of breath. In the ED she was noted to have atrial fibrillation with rate of 160. She was given diltiazem which slowed down her rate. Diagnosis: Stroke: No - Discharge Data Discharge Date: 07/26/18 Discharge Disposition: Home, Self-Care 01 Condition: Good - Discharge Diagnosis/Problem(s) (1) Atrial fibrillation with RVR SNOMED Code(s): 237416241039537 ICD Code: I48.91 - UNSPECIFIED ATRIAL FIBRILLATION Status: Acute Current Visit: Yes (2) CHF (congestive heart failure) SNOMED Code(s): 91613227 ICD Code: I50.9 - HEART FAILURE, UNSPECIFIED Status: Acute Current Visit : Yes Qualifiers: Heart failure type: systolic Heart failure chronicity: acute Qualified Code(s): I50.21 - Acute systolic (congestive) heart failure (3) UTI (urinary tract infection) SNOMED Code(s): 80685176 ICD Code: N39.0 - URINARY TRACT INFECTION, SITE NOT SPECIFIED Status: Resolved Current Visit: Yes Qualifiers: Urinary tract infection type: acute cystitis (4) Anticoagulated SNOMED Code(s): 860146241, 312830997 ICD Code: Z79.01 - SKILLED NURSING (CURRENT) USE OF ANTICOAGULANTS Status: Acute Current Visit: Yes - Patient Summary/Data Consults: Consultations 07/24/18 14:01 Consult to Physician [CONS] Routine - Patient Instructions Diet: Heart Healthy Diet, Low Sodium Activity: As Tolerated Showering/Bathing: May Shower Notify Provider of: Fever, Increased Pain, Swelling and Redness, Drainage, Nausea and/or Vomiting Other/Special Instructions: Weigh yourself daily and log daily. If you start to notice weight gain of 3-5 lbs in 2-3 days, please notifi Dr Badillo or Dr Enriquez, you may need to increase Lasix dose for a couple days. If you experience, chest pain or increased shortness of breath, please seek medical evaluation - Discharge Plan *PRESCRIPTION DRUG MONITORING PROGRAM REVIEWED*: Not Applicable *COPY OF PRESCRIPTION DRUG MONITORING REPORT IN PATIENT DIANA: Not Applicable Prescriptions/Med Rec: Apixaban [Eliquis] 2.5 mg PO BID #60 tablet Furosemide [Lasix] 40 mg PO DAILY #30 tablet Lisinopril [Prinivil] 2.5 mg PO DAILY #30 tablet Metoprolol Tartrate 100 mg PO BID #60 tablet Spironolactone [Aldactone] 12.5 mg PO DAILY #30 tablet Home Medications: Home Meds Apixaban [Eliquis] 2.5 mg PO BID #60 tablet 07/26/18 [Rx] Furosemide [Lasix] 40 mg PO DAILY #30 tablet 07/26/18 [Rx] Lisinopril [Prinivil] 2.5 mg PO DAILY #30 tablet 07/26/18 [Rx] Metoprolol Tartrate 100 mg PO BID #60 tablet 07/26/18 [Rx] Patient's Own Medication [Ptom] 2 each NASBOTH BID PRN each 07/26/18 [Rx] Spironolactone [Aldactone] 12.5 mg PO DAILY #30 tablet 07/26/18 [Rx] Oxygen Therapy Mode: Room Air Patient Handouts: Furosemide tablets, Metoprolol tablets, Urinary Tract Infection, Adult, [id number], Spironolactone tablets, Lisinopril tablets, Apixaban oral tablets, Atrial Fibrillation, [id number] Referrals: [facility] [Outside] Tc Enriquez MD [Physician] - 08/09/18 1:00 pm Wilberto Badillo MD [Physician] - 08/01/18 12:30 pm - Discharge Summary/Plan Comment DC Time >30 min.: No Discharge Summary/Plan Comment: Admitting Diagnoses: Dyspnea Afib RVR Acute CHF UTI Discharge Diagnoses: Afib, rate controlled Systolic CHF Anticoagulated Other PHM Environmental Allergies HTN Eleonora was admitted for Afib with RVR, she was started on Metoprolol tartrate BID for afib. This was steadily increased for the best rate control. She has tolerated Metoprolol 100 mg BID x 48 hrs will good rate control. She remains in Afib, but rates are 70-90s. She was started on Eliquis for stroke prevention due to qualifying CHADSVASC score. She was also treated with Lasix IV for diuresis as ECHO was pending. ECHO returned which revealed, EF less than 20%, severe LV systolic dysfunction, severe global hypokineses, mild LVH, mild to moderate mitral regurgitation, elevated RVSP, severe biatrial dilation and moderate TR. Dr Enriquez was consulted for further management of acute decompensate systolic heart failure. He added Lisinopril 5 mg for EF as well as Aldactone 12.5 mg daily. She has tolerated these well and was transitioned to Lasix 40 mg daily as well. She will be discharged home today, she was encouraged to monitor her weight at home daily and to keep a log of this. If she starts to notice weight gain of 3-5 lbs in 2-3 days she is notify Dr Enriquez or Dr Badillo. She is to return to ED or clinic if concerns should arise prior to follow up appointments. 10 day supply provided of all new medications as per patient request. Please see Dr Medina consultation for in depth plan on further treatment plan. - General Info Date of Service: 07/26/18 Admission Dx/Problem (Free Text: Afib, RVR, acute systolic CHF Subjective Update: Sitting up in the chair doing well. She is eager to go home. She has no concerns. Edema is better and no further SOB. No chest pain. Functional Status: Reports: Pain Controlled, Tolerating Diet, Ambulating, Urinating - Review of Systems General: Reports: No Symptoms. Denies: Fever, Weakness, Fatigue HEENT: Reports: No Symptoms. Denies: Headaches, Sore Throat, Visual Changes Pulmonary: Reports: No Symptoms. Denies: Shortness of Breath Cardiovascular: Reports: No Symptoms. Denies: Chest Pain, Palpitations, Edema Gastrointestinal: Reports: No Symptoms. Denies: Abdominal Pain, Nausea, Vomiting Musculoskeletal: Reports: No Symptoms Skin: Reports: No Symptoms Neurological: Reports: No Symptoms Psychiatric: Reports: No Symptoms - Patient Data Vitals - Most Recent: Last Vital Signs Temp 97.2 F 07/26/18 07:55 Pulse 85 07/26/18 08:54 Resp 16 07/26/18 07:55 BP 130/63 07/26/18 08:56 Pulse Ox 94 L 07/26/18 07:55 Weight - Most Recent: 93.44 kg I&O - Last 24 hours: Intake & Output 07/25/18 07/26/18 07/26/18 22:59 06:59 14:59 Intake Total 800 1300 Output Total 1175 350 Balance -375 950 Lab Results - Last 24 hrs: Laboratory Results - last 24 hr 07/26/18 Range/Units 04:43 Sodium 139 (136-145) mmol/L Potassium 4.0 (3.5-5.1) mmol/L Chloride 103 (98-107) mmol/L Carbon Dioxide 27.6 (21.0-32.0) mmol/L BUN 52 H (7.0-18.0) mg/dL Creatinine 1.6 H (0.6-1.0) mg/dL Est Cr Clr Drug Dosing 20.73 mL/min Estimated GFR (MDRD) 30.3 ml/min Glucose 112 H (74-106) mg/dL Calcium 8.7 (8.5-10.1) mg/dL Magnesium 2.2 (1.8-2.4) mg/dL Med Orders - Current: Current Medications Acetaminophen (Tylenol) 650 mg PO Q6H PRN PRN Reason: Pain Last Admin: 07/26/18 08:58 Dose: 650 mg Albuterol (Ventolin Hfa) 0 gm INH Q4H PRN PRN Reason: Shortness of Breath Last Admin: 07/23/18 05:20 Dose: 2 inhalation Apixaban (Eliquis) 2.5 mg PO BID [facility] Last Admin: 07/26/18 08:56 Dose: 2.5 mg Cephalexin (Keflex) 250 mg PO Q12H [facility] Last Admin: 07/26/18 10:38 Dose: 250 mg Diltiazem HCl (Diltiazem) 20 mg IVPUSH Q3H PRN PRN Reason: HR over 100 Last Admin: 07/23/18 20:13 Dose: 20 mg Furosemide (Lasix) 40 mg PO DAILY [facility] Last Admin: 07/26/18 08:56 Dose: 40 mg Lisinopril (Prinivil) 2.5 mg PO DAILY [facility] Last Admin: 07/26/18 08:56 Dose: 2.5 mg Metoprolol Tartrate (Lopressor) 100 mg PO Q12H [facility] Last Admin: 07/26/18 08:54 Dose: 100 mg Ipratropium Nasal (Solution 0.06%) 2 each NASBOTH BID PRN PRN Reason: NASAL ALLERGY SYMPTOMS Last Admin: 07/26/18 10:39 Dose: 2 each Sodium Chloride (Saline Flush) 10 ml FLUSH ASDIRECTED PRN PRN Reason: Keep Vein Open Last Admin: 07/19/18 14:32 Dose: 10 ml Sodium Chloride (Saline Flush) 2.5 ml FLUSH ASDIRECTED PRN PRN Reason: Keep Vein Open Last Admin: 07/19/18 14:32 Dose: 2.5 ml Spironolactone (Aldactone) 12.5 mg PO DAILY [facility] Last Admin: 07/26/18 08:57 Dose: 12.5 mg Discontinued Medications Diltiazem HCl (Diltiazem) 20 mg IVPUSH ONETIME ONE Stop: 07/19/18 14:15 Last Admin: 07/19/18 14:21 Dose: 20 mg Diltiazem HCl (Diltiazem) 20 mg IVPUSH ONETIME ONE Stop: 07/19/18 15:26 Last Admin: 07/19/18 15:40 Dose: 20 mg Furosemide (Lasix) 40 mg IVPUSH NOW ONE Stop: 07/19/18 18:25 Last Admin: 07/19/18 18:36 Dose: 40 mg Furosemide (Lasix) 40 mg IVPUSH NOW ONE Stop: 07/20/18 13:44 Last Admin: 07/20/18 14:03 Dose: 40 mg Furosemide (Lasix) 40 mg IVPUSH NOW ONE Stop: 07/21/18 11:01 Last Admin: 07/21/18 11:36 Dose: 40 mg Furosemide (Lasix) 40 mg IVPUSH NOW ONE Stop: 07/23/18 11:01 Last Admin: 07/23/18 12:28 Dose: 40 mg Furosemide (Lasix) 40 mg IVPUSH NOW ONE Stop: 07/24/18 09:47 Last Admin: 07/24/18 10:32 Dose: 40 mg Furosemide (Lasix) 40 mg IVPUSH BIDDIURETIC [facility] Last Admin: 07/25/18 14:37 Dose: 40 mg Sodium Chloride (Normal Saline) 1,000 mls @ 125 mls/hr IV STAT ONE Stop: 07/19/18 22:18 Last Admin: 07/19/18 14:31 Dose: 125 mls/hr Lisinopril (Prinivil) 2.5 mg PO ONETIME ONE Stop: 07/24/18 19:01 Last Admin: 07/24/18 19:45 Dose: 2.5 mg Metoprolol Tartrate (Lopressor) 25 mg PO Q12H [facility] Last Admin: 07/21/18 06:19 Dose: Not Given Metoprolol Tartrate (Lopressor) 50 mg PO Q12H [facility] Last Admin: 07/22/18 23:40 Dose: 50 mg Metoprolol Tartrate (Lopressor) 75 mg PO Q12H [facility] Last Admin: 07/24/18 10:34 Dose: 75 mg Metoprolol Tartrate (Lopressor) 100 mg PO Q12H [facility] Last Admin: 07/24/18 20:14 Dose: Not Given Tramadol HCl (Ultram) 50 mg PO ONETIME ONE Stop: 07/23/18 17:11 Last Admin: 07/23/18 18:05 Dose: 50 mg - Exam General: Reports: Alert, Oriented, Cooperative, No Acute Distress Lungs: Reports: Normal Respiratory Effort, Crackles (fine bibasilar) Cardiovascular: Reports: Regular Rate, No Murmurs, Irregular Rhythm. Denies: Tachycardia GI/Abdominal Exam: Normal Bowel Sounds, Soft, Non-Tender, No Organomegaly, No Distention Extremities: Normal Inspection, Normal Range of Motion, Non-Tender, No Pedal Edema Neurological: Reports: No New Focal Deficit Psy/Mental Status: Reports: Alert, Normal Affect, Normal Mood <TrishWong Balderrama - Last Filed: 07/26/18 13:33> Discharge Summary - Hospital Course HPI Initial Comments: I have seen and examined to patient independently of Deepika Eden CNP. I have discussed the case for care of this patient with her. I have reviewed and approve of the plan of care as outlined by CATHERINE. Please see orders. - Patient Summary/Data Consults: Consultations 07/24/18 14:01 Consult to Physician [CONS] Routine - Patient Data Vitals - Most Recent: Last Vital Signs Temp 36.3 C 07/26/18 11:43 Pulse 92 07/26/18 11:43 Resp 16 07/26/18 11:43 BP 102/60 07/26/18 11:43 Pulse Ox 95 07/26/18 11:43 I&O - Last 24 hours: Intake & Output 07/25/18 07/26/18 07/26/18 22:59 06:59 14:59 Intake Total 800 1300 Output Total 1175 350 Balance -375 950 Lab Results - Last 24 hrs: Laboratory Results - last 24 hr 07/26/18 Range/Units 04:43 Sodium 139 (136-145) mmol/L Potassium 4.0 (3.5-5.1) mmol/L Chloride 103 (98-107) mmol/L Carbon Dioxide 27.6 (21.0-32.0) mmol/L BUN 52 H (7.0-18.0) mg/dL Creatinine 1.6 H (0.6-1.0) mg/dL Est Cr Clr Drug Dosing 20.73 mL/min Estimated GFR (MDRD) 30.3 ml/min Glucose 112 H (74-106) mg/dL Calcium 8.7 (8.5-10.1) mg/dL Magnesium 2.2 (1.8-2.4) mg/dL Med Orders - Current: Current Medications Acetaminophen (Tylenol) 650 mg PO Q6H PRN PRN Reason: Pain Last Admin: 07/26/18 08:58 Dose: 650 mg Albuterol (Ventolin Hfa) 0 gm INH Q4H PRN PRN Reason: Shortness of Breath Last Admin: 07/23/18 05:20 Dose: 2 inhalation Apixaban (Eliquis) 2.5 mg PO BID [facility] Last Admin: 07/26/18 08:56 Dose: 2.5 mg Cephalexin (Keflex) 250 mg PO Q12H [facility] Last Admin: 07/26/18 10:38 Dose: 250 mg Diltiazem HCl (Diltiazem) 20 mg IVPUSH Q3H PRN PRN Reason: HR over 100 Last Admin: 07/23/18 20:13 Dose: 20 mg Furosemide (Lasix) 40 mg PO DAILY [facility] Last Admin: 07/26/18 08:56 Dose: 40 mg Lisinopril (Prinivil) 2.5 mg PO DAILY [facility] Last Admin: 07/26/18 08:56 Dose: 2.5 mg Metoprolol Tartrate (Lopressor) 100 mg PO Q12H [facility] Last Admin: 07/26/18 08:54 Dose: 100 mg Ipratropium Nasal (Solution 0.06%) 2 each NASBOTH BID PRN PRN Reason: NASAL ALLERGY SYMPTOMS Last Admin: 07/26/18 10:39 Dose: 2 each Sodium Chloride (Saline Flush) 10 ml FLUSH ASDIRECTED PRN PRN Reason: Keep Vein Open Last Admin: 07/19/18 14:32 Dose: 10 ml Sodium Chloride (Saline Flush) 2.5 ml FLUSH ASDIRECTED PRN PRN Reason: Keep Vein Open Last Admin: 07/19/18 14:32 Dose: 2.5 ml Spironolactone (Aldactone) 12.5 mg PO DAILY [facility] Last Admin: 07/26/18 08:57 Dose: 12.5 mg Discontinued Medications Diltiazem HCl (Diltiazem) 20 mg IVPUSH ONETIME ONE Stop: 07/19/18 14:15 Last Admin: 07/19/18 14:21 Dose: 20 mg Diltiazem HCl (Diltiazem) 20 mg IVPUSH ONETIME ONE Stop: 07/19/18 15:26 Last Admin: 07/19/18 15:40 Dose: 20 mg Furosemide (Lasix) 40 mg IVPUSH NOW ONE Stop: 07/19/18 18:25 Last Admin: 07/19/18 18:36 Dose: 40 mg Furosemide (Lasix) 40 mg IVPUSH NOW ONE Stop: 07/20/18 13:44 Last Admin: 07/20/18 14:03 Dose: 40 mg Furosemide (Lasix) 40 mg IVPUSH NOW ONE Stop: 07/21/18 11:01 Last Admin: 07/21/18 11:36 Dose: 40 mg Furosemide (Lasix) 40 mg IVPUSH NOW ONE Stop: 07/23/18 11:01 Last Admin: 07/23/18 12:28 Dose: 40 mg Furosemide (Lasix) 40 mg IVPUSH NOW ONE Stop: 07/24/18 09:47 Last Admin: 07/24/18 10:32 Dose: 40 mg Furosemide (Lasix) 40 mg IVPUSH BIDDIURETIC [place] Last Admin: 07/25/18 14:37 Dose: 40 mg Sodium Chloride (Normal Saline) 1,000 mls @ 125 mls/hr IV STAT ONE Stop: 07/19/18 22:18 Last Admin: 07/19/18 14:31 Dose: 125 mls/hr Lisinopril (Prinivil) 2.5 mg PO ONETIME ONE Stop: 07/24/18 19:01 Last Admin: 07/24/18 19:45 Dose: 2.5 mg Metoprolol Tartrate (Lopressor) 25 mg PO Q12H [facility] Last Admin: 07/21/18 06:19 Dose: Not Given Metoprolol Tartrate (Lopressor) 50 mg PO Q12H [facility] Last Admin: 07/22/18 23:40 Dose: 50 mg Metoprolol Tartrate (Lopressor) 75 mg PO Q12H [facility] Last Admin: 07/24/18 10:34 Dose: 75 mg Metoprolol Tartrate (Lopressor) 100 mg PO Q12H [facility] Last Admin: 07/24/18 20:14 Dose: Not Given Tramadol HCl (Ultram) 50 mg PO ONETIME ONE Stop: 07/23/18 17:11 Last Admin: 07/23/18 18:05 Dose: 50 mg
[2018-07-26 11:44] VITALS: BP 102/60
== END 2018-07-26 13:50 | disposition home or self-care (01) | DRG 308 ==
LOC: MW.ED 13:58 → MW.MS 15:50 → OBSVTOIN 18:54 → MW.MS 23:55
PROVIDERS: ADMIT Internal Medicine; ATTEND Internal Medicine
DX: I48.91 Unspecified atrial fibrillation (principal); I50.23 Acute on chronic systolic (congestive) heart failure; N30.00 Acute cystitis without hematuria; I11.0 Hypertensive heart disease with heart failure; B96.20 Unspecified Escherichia coli [E. coli] as the cause of diseases classified elsewhere; H91.90 Unspecified hearing loss, unspecified ear; E11.9 Type 2 diabetes mellitus without complications; G89.29 Other chronic pain; Z66 Do not resuscitate; M54.9 Dorsalgia, unspecified; I34.0 Nonrheumatic mitral (valve) insufficiency; I44.7 Left bundle-branch block, unspecified; Z98.49 Cataract extraction status, unspecified eye; Z90.49 Acquired absence of other specified parts of digestive tract; Z88.8 Allergy status to other drugs, medicaments and biological substances; Z90.710 Acquired absence of both cervix and uterus; Z90.89 Acquired absence of other organs; Z88.6 Allergy status to analgesic agent; Z91.013 Allergy to seafood; Z79.899 Other long term (current) drug therapy; Z79.01 Long term (current) use of anticoagulants; Z91.018 Allergy to other foods
CPT/HCPCS: 36415; 71046; 71046-26; 80048; 80053; 81001; 83735; 83880; 84443; 84484; 85025; 85610; 87086; 87088; 87186; 93005; 93306; 96361; 96374; 96376; 99284; 99285-25; A9270-GY; J1940; J3490; J7040